=== PATIENT | female | born 1955 | race Caucasian/White ===

== ENCOUNTER 2018-11-11 06:10 | Outpatient (CLI) | payer MEDICAID, SELFPAY ==
[2018-11-11 09:05] LABS: ALT 40 U/L (12-78); AST 17 U/L (15-37); Cholesterol 215 mg/dL (50-200); HDL Cholesterol 83 mg/dL (40-60); LDL CHOLESTEROL 115 mg/dL (<100); Triglyceride 91 mg/dL (30-150)
[2018-11-11 09:20] LABS: Creatine Kinase 89 U/L (26-192)
== END 2018-11-11 06:30 ==
PROVIDERS: PCP Physician Assistant Medical; Visit Provider Nurse Practitioner Family
DX: E78.5 Hyperlipidemia, unspecified (principal)
CPT/HCPCS: 36415; 80061; 82550; 83721; 84450; 84460

== ENCOUNTER 2018-11-16 19:17 | Outpatient (REF) | payer MEDICAID, SELFPAY ==
--- NOTE | 2018-11-16 15:15 | PAPFT_PTH ---
PATIENT: Coco Forde LOC: [facility] U#:[id number] AGE/SX: 63/F ROOM: RE11/16/[address]: Marianna Waters : 1955 BED: DIS: 11/16/2018 SPEC #: [id number] RECD: 11/17/18 12:55 STATUS: CORDELL RELisa #: [id number] ANASTASIA: 11/16/18 15:[address]: Marianna Waters DEPT: [facility] Cytology RECD BY: Sonali Singh ENTERED: 11/17/18 12:55 SP TYPE: PAPFT OTHR DR: Hilda Dhaliwal Tissues: 1 - CX/ENDOCX FOR PAP SMEARS Procedures: PAP THIN PREP/UVM Screening HPV DNA PROBE Comments: [id number]
== END 2018-11-16 19:37 ==
LOC: NCHCN 19:17
PROVIDERS: PCP Physician Assistant Medical; Visit Provider Nurse Practitioner Family
DX: Z12.4 Encounter for screening for malignant neoplasm of cervix (principal); Z11.51 Encounter for screening for human papillomavirus (HPV); Z01.419 Encounter for gynecological examination (general) (routine) without abnormal findings
CPT/HCPCS: 88142; 87624

== ENCOUNTER 2019-04-15 09:39 | Inpatient (IN) | payer MEDICAID, SELFPAY ==
[2019-04-15 09:39] VITALS: BP 168/68; PULSE 88; RESP 18; TEMP 36.8; O2SAT 97
--- NOTE | 2019-04-15 10:00 | DI.RAD_ITS ---
SYMPTOM/DIAGNOSIS: FALL LEFT HIP AND PELVIS:: Three views. There are post surgical changes of a left total hip replacement. The orthopaedic hardware appears in good position. There are two lag screws seen in the left hemipelvis which appears stable. There has been no change in appearance of the orthopaedic hardware compared to 2009. Heterotopic bone formation is seen about the left hip prosthesis. No acute fracture or dislocation is seen. The soft tissues are unremarkable. IMPRESSION: No acute fracture or dislocation of the left hip.
--- NOTE | 2019-04-15 10:00 | DI.RAD_ITS ---
SYMPTOM/DIAGNOSIS: FALL LEFT TIB/FIB: No acute fracture or dislocation is identified. The comminuted patellar fracture is discussed on the x-ray of the knee.
--- NOTE | 2019-04-15 10:00 | DI.RAD_ITS ---
SYMPTOM/DIAGNOSIS: FALL LEFT KNEE: Three views. There is a comminuted distracted fracture of the patella. There is hemarthrosis present. There is marked swelling in the prepatellar soft tissues. The distal femur and proximal tibia and fibula appear intact. IMPRESSION: Comminuted severely distracted fracture of the patella.
--- NOTE | 2019-04-15 10:00 | ED.GENADUL_ITS ---
Discharge Plan Discharge Details Chief Complaint: Orthopedic Primary Care Provider: Hilda Dhaliwal ED Provider: Artur Moreno Home Meds and New Rx's Prescriptions: No Action simvastatin 10 MG tablet 10 mg PO DAILY Qty: 1 RF: 0 Therems 1 EACH tablet 1 ea PO DAILY Qty: 1 RF: 0 Buspirone HCl 5 MG tablet 5 mg PO BID RF: 0 ibuprofen 800 MG tablet 800 mg PO TID RF: 0 donepezil 10 MG tablet 10 mg PO DAILY RF: 0 lisinopril 10 MG tablet 20 mg PO DAILY RF: 0 fluoxetine [Prozac] 10 MG capsule 10 mg PO DAILY RF: 0 hydrochlorothiazide 25 MG tablet 12.5 mg PO DAILY RF: 0 acetylcysteine 600 mg Capsule See Rx Instructions .ROUTE .COMPLEX RF: 0 Medical Decision Making 63-year-old female past medical history of dementia presents with a mechanical fall left knee trauma concern for fracture versus traumatic effusion versus less likely dislocation plan for basic labs x-rays ED observation. ECG: Regular sinus rhythm rate 67 normal axis no ectopy normal intervals no STEMI X-rays significant for comminuted patellar fracture normal distal neurovascular exam discussed with orthopedics for admission and surgery tomorrow. HPI 63-year-old female history of dementia hypertension depression hyperlipidemia DNR/DNI. Presents with caregiver after a fall off bed reports that she got tangled up in the bed spread denies loss of consciousness caregiver found patient alert and oriented on the floor complaining of left knee pain. Patient denies head trauma complaining solely of left knee pain around her patella. Patient states pain is sharp nonradiating localized right over her anterior knee is worse with movement palpation better with ice.no shortness of breath chest pain nausea vomiting diarrhea loss of consciousness fever chills or other recent trauma. General Date/Time Provider Initiated Documentation: 04/15/19 09:50 . Related Data Home Medications Medication Instructions Recorded Confirmed donepezil 10 mg PO DAILY 12/01/12 04/15/19 fluoxetine [Prozac] 10 mg PO DAILY 12/01/12 04/15/19 hydrochlorothiazide 12.5 mg PO DAILY 12/01/12 04/15/19 ibuprofen 800 mg PO TID 12/01/12 04/15/19 lisinopril 20 mg PO DAILY 12/01/12 04/15/19 Therems 1 ea PO DAILY #1 05/02/13 04/15/19 simvastatin 10 mg PO DAILY #1 tab-cap 05/02/13 04/15/19 Buspirone HCl 5 mg PO BID tab-cap 05/25/17 04/15/19 acetylcysteine See Rx Instructions .ROUTE .COMPLEX 04/15/19 04/15/19 Allergies Allergy/AdvReac Type Severity Reaction Status Date / Time No Known Allergies Allergy Unverified 06/07/17 09:24 General Stated Complaint: Orthopedic ISMAEL: 3 Review of Systems Review of Systems All systems reviewed & are unremarkable except as noted in HPI and below PFSH Medical History Benign hypertension Depression Hyperlipidemia Organic brain syndrome PTSD Symptoms of Dementia Tinnitus Surgical History Colonoscopy - MAC (06/07/17) Total replacement of hip Social History Smoking/Tobacco Use Status: Former Tobacco Use Alcohol Intake: never Drug use: Never Do you feel safe at home: Yes Do you feel safe in your relationship?: Yes Exam Narrative Exam Narrative: Pulse oximetry reviewed by me and is normal: Constitutional: in no acute distress. well appearing. oriented to person, place, and time. Eyes: conjunctivae are normal. Pupils are equal, round, and reactive to light. No scleral icterus. extraocular muscles are intact Ears/Nose/Mouth/Throat: muscousal membranes are moist. Musculoskeletal: neck is supple. normal range of motion in all extremities except for left knee is held in extension with moderate swelling over the anterior knee with positive effusion no other deformity no crepitus normal distal neurovascular exam normal popliteal pulses per. Cardiovascular: Normal rate and rhythm. No lower extremity edema Respiratory: effort is normal. no stridor or respiratory distress. Lungs clear to auscultation GastrointestinaI: abdomen soft, +BS, nontender, -rebound, -guarding. Neurological: alert and oriented to person, place, and time. normal strength, no tremor. Skin: Skin is warm and dry. not diaphoretic. Distal perfusion intact, warm extremities, cap refill < 2 seconds. Hem/Lymph/Imm: No cervical LAD, no goiter, no conjunctival pallor Psych: normal mood and affect. behavior is normal Triage and nurse notes reviewed. Course Vital Signs Temperature 36.8 C 04/15/19 09:39 Pulse 88 04/15/19 09:39 Respiratory Rate 18 04/15/19 09:39 Blood Pressure 168/68 H 04/15/19 09:39 Pulse Oximetry 97 04/15/19 09:39 Temperature 36.8 C 04/15/19 09:39 Temperature Source Temporal Artery Scan 04/15/19 09:39 Pulse 88 04/15/19 09:39 Respiratory Rate 18 04/15/19 09:39 Respiratory Effort Non-Labored 04/15/19 09:51 Blood Pressure 168/68 H 04/15/19 09:39 Blood Pressure Position Supine 04/15/19 09:39 Pulse Oximetry 97 04/15/19 09:39 Oxygen Delivery Method Room Air 04/15/19 09:39 Oxygen Flow Rate 0 04/15/19 09:39
--- NOTE | 2019-04-15 10:47 | NUR.NOTE ---
pt back from [facility] Nursing Note:
[2019-04-15 11:12] LABS: Abs Immature Grans 0.03 k/cumm (0.0-0.09); Absolute Basophil Count 0.07 k/cumm (0.0-0.2); Absolute Lymphocyte Count 1.96 k/cumm (1.2-3.4); Absolute Monocyte Count 0.55 k/cumm (0.11-0.7); Absolute Neutrophil Count 5.03 k/cumm (1.2-6.7); Basophils % 0.9; Eosinophils % 1.3; HCT 42.6 % (36.0-46.0); Immature Grans % 0.4; Lymphocytes % 25.3; Mean Corp. HGB Concentration 32.9 g/dL (32.0-36.0); Mean Corpuscular Hemoglobin 28.6 pg (27.0-33.0); Mean Corpuscular Volume 87.1 fL (80-95); Mean Platelet Volume 12.5 fL (8.0-11.0); Monocytes % 7.1; Platelet Count 261 x1000/uL (130-400); RBC 4.89 m/cumm (4.00-5.20); RBC Distribution Width 13.1 % (11.7-14.6); White Blood Cell Count 7.74 k/cumm (4.4-10.8)
[2019-04-15 11:22] LABS: Anion Gap 9.7 mmol/L (3-11); BUN 20 mg/dL (7-18); CO2 28.3 mmol/L (21.0-32.0); CREATININE 0.66 mg/dL (0.55-1.02); Calcium 9.2 mg/dL (8.5-10.1); Chloride 110 mmol/L (98-107); Glucose 111 mg/dL (70-100); Potassium 3.7 mmol/L (3.5-5.1); Sodium 148 mmol/L (136-145)
--- NOTE | 2019-04-15 12:07 | DI.VRAD_ITS ---
EXAM: XR Left Hip with Pelvis when Performed EXAM DATE/TIME: 04/15/2019 10:14 AM CLINICAL HISTORY: 63 years old, female; Hip pain; Left hip TECHNIQUE: Imaging protocol: XR Left hip with pelvis when performed. Views: 2 or 3 views. COMPARISON: No relevant prior studies available. FINDINGS: Bones/joints: Postsurgical changes of the left pelvis and left hip. There is a total left hip arthroplasty with heterotopic bone. There is degenerative changes of the lower lumbar spine. Soft tissues: Normal. Gastrointestinal tract: There are air-filled loops of small and large bowel. There is a moderate stool overload. IMPRESSION: Total left hip arthroplasty. No evidence for acute bony injury. Dictated and Authenticated by: Sherry Finn MD. Ordering:MARY Siddiqui MD
--- NOTE | 2019-04-15 12:08 | DI.VRAD_ITS ---
EXAM: XR Left Knee EXAM DATE/TIME: 04/15/2019 10:03 AM CLINICAL HISTORY: 63 years old, female; Pain; Knee; Left TECHNIQUE: Imaging protocol: XR Left knee. Views: 3 views. COMPARISON: No relevant prior studies available. FINDINGS: Bones/joints: The patella is fragmented. There is a joint effusion with prepatellar swelling. The femur, tibia, and fibula visualized are intact. Soft tissues: Marked prepatellar soft tissue swelling. IMPRESSION: Comminuted patella fracture with joint effusion and prepatellar hematoma. Dictated and Authenticated by: Sherry Finn MD. Ordering:MARY Siddiqui MD
--- NOTE | 2019-04-15 12:09 | DI.VRAD_ITS ---
EXAM: XR Left Tibia and Fibula EXAM DATE/TIME: 04/15/2019 10:03 AM CLINICAL HISTORY: 63 years old, female; Injury or trauma; Fall; Initial encounter; Swelling (edema); Knee; Left TECHNIQUE: Imaging protocol: XR Left tibia and fibula. Views: 2 views. COMPARISON: CR XR knee LT 3V AP,lat,olga 15/04/2019 10:22 FINDINGS: Bones/joints: Unremarkable. Soft tissues: Unremarkable. IMPRESSION: No acute findings. Dictated and Authenticated by: Sherry Finn MD. Ordering:MARY Siddiqui MD
--- NOTE | 2019-04-15 12:11 | NUR.NOTE ---
pt asissted onto bedpan Nursing Note:
--- NOTE | 2019-04-15 12:22 | NUR.NOTE ---
ana at bedside for eval Nursing Note:
--- NOTE | 2019-04-15 13:23 | OCONE_ITS ---
Date of service: 04/15/19 Time of Service: 13:23 History of Present Illness Chief Complaint: Left Knee Pain Narrative: Coco is a 63-year-old who lives with a caregiver and also has a guardian. She is otherwise fairly independent with mobility. She states that she was trying out of the bed and is unsure exactly what happened but she fell. She thought she fell on her butt but she could have hit her knee. She had immediate pain in the left knee. She is unable to stand or weight-bear. She noted swelling about the left knee. She has a history of a left hip replacement and pelvic osteotomy on the left side. She denies any preinjury left knee pain. She denies any pain in the right leg or bilateral upper extremities. She denies any numbness or tingling. She has no significant medical issues and currently has no chest pain, shortness of breath, loss of consciousness. Consults Consult date: 04/15/19 Requesting physician: Artur Moreno Consult Reason Left patella fracture Assessment and Plan (1) Fracture of left patella: Start date: 04/15/19 Current visit: Yes Status: Acute Coco is a 63-year-old who has a comminuted and displaced left patella fracture. She is unable to weight-bear. This is a surgical fracture since the extensor mechanism is completely disrupted. I discussed this case with Coco and her guardian and caregiver. I reviewed the possible treatment options and they both agree to proceed in whatever way we will reestablish Coco's ability to ambulate. While she has some mental disabilities, she is otherwise independent physically speaking. I reviewed the surgery with Coco and her pr oviders. I discussed the risk of the procedure to include bleeding, infection, pain, hardware prominence, hardware failure, malunion, nonunion, damage to nerves and vessels, damage to muscle tendons, weakness, blood clot, cardiopulmonary demise. Despite these risk, barely agrees to proceed and so does her caregiver and guardian. The guardian signed her consent. I also do not think Coco is safe to go home. To help manage her pain we will use ketorolac. She is unable to bear weight nor mobilize on the left leg and is not safe to discharge to home. Furthermore, her sodium came back slightly elevated which we will continue to follow here in the hospital. I will plan for surgical stabilization of the left patella fracture tomorrow morning. N.p.o. after midnight. Cefazolin for preoperative antibiotics. Qualifiers: Encounter type: initial encounter Fracture type: closed Fracture morphology: comminuted Fracture alignment: displaced Qualified Code(s): S82.042A - Displaced comminuted fracture of left patella, initial encounter for closed fracture (2) Hypernatremia: Current visit: Yes Status: Acute Follow conservatively at this time. Recheck BMP in the morning. Review of Systems Review of Systems All systems reviewed & are unremarkable except as noted in HPI and below PFSH Medical History Benign hypertension Depression Hyperlipidemia Organic brain syndrome PTSD Symptoms of Dementia Tinnitus Surgical History Colonoscopy - MAC (06/07/17) Total replacement of hip Social History Smoking/Tobacco Use Status: Former Tobacco Use Alcohol Intake: never Drug use: Never Do you feel safe at home: Yes Do you feel safe in your relationship?: Yes Exam Narrative Exam Narrative: Cooc is lying comfortably in the supine position in the stretcher. Her head is normal cephalic and atraumatic. She is edentulous. She is conversant and is able to answer questions appropriately. She is alert but not quite oriented to place or time/location. She is breathing comfortably without notable wheezing or distress. Evaluation bilateral upper extremity show full passive and active range of motion. No pain with passive motion or palpation. Sensation intact from C5-T1. Strength is intact from C5-T1. Evaluation of the right lower extremity shows no notable deformity. No overlying skin changes. No ecchymosis. No pain with passive motion of the hip, knee, ankle, or foot. She endorses full sensation from L3-S1. Palpable DP and PT pulse. Evaluation of the left knee shows swelling about the left knee. There is a la rge surgical surgical incision seen along the lateral aspect the left thigh extending up onto the hip. There is no significant swelling otherwise. Mild ecchymosis seen anteriorly about the left knee. No erythema nor signs of infection. There are multiple small areas of scarring seen throughout the leg especially over the knee which the patient reports to have a history of boils. No signs of infection. Exquisite pain to palpation over the left knee. No pain over the proximal left thigh onto the left hip. No pain distally at the ankle of the foot. Sensation is intact from L3-S1. She has active ankle dorsiflexion, plantar flexion, great toe extension and flexion. Palpable DP and PT pulse. Results Last Vital Signs Temp 36.8 C 04/15/19 09:39 Pulse 88 04/15/19 09:39 Resp 18 04/15/19 09:39 BP 168/68 H 04/15/19 09:39 Pulse Ox 97 04/15/19 09:39 Labs : 04/15/19 10:53 04/15/19 10:53 Laboratory Results - last 24 hr 04/15/19 04/15/19 10:53 10:53 WBC 7.74 RBC 4.89 Hgb 14.0 Hct 42.6 MCV 87.1 MCH 28.6 MCHC 32.9 RDW 13.1 Plt Count 261 MPV 12.5 H Immature Gran % 0.4 Neutrophils % 65.0 Lymphocytes % 25.3 Monocytes % 7.1 Eosinophils % 1.3 Basophils % 0.9 Absolute Neutrophils 5.03 Absolute Lymphocytes 1.96 Absolute Monocytes 0.55 Absolute Eosinophils 0.10 Absolute Basophils 0.07 Sodium 148 H Potassium 3.7 Chloride 110 H Carbon Dioxide 28.3 Anion Gap 9.7 BUN 20 H Creatinine 0.66 Estimated GFR/1.73 m2 >= 60.00 Glucose 111 H Calcium 9.2 Imaging Imaging Studies: X-ray of the left knee demonstrates a comminuted fracture of the left patella with a primary transverse fracture pattern and to largely displaced components. X-ray of the left tib-fib and the left hip show no signs of acute injury. The left hip does have hip replacement and 2 screws within the ileum. I see no signs of new fracture or displacement of the total hip components.
[2019-04-15] MEDS: Acetaminophen 500 MG TAB PO ×2 (14:59→20:07)
[2019-04-15 15:01] VITALS: BP 180/80; PULSE 70; RESP 19; TEMP 37.1; O2SAT 97
--- NOTE | 2019-04-15 15:03 | ED.GENADUL_ITS ---
Discharge Plan Discharge Details Chief Complaint: Orthopedic Admit Date/Time: 04/15/19 13:11 Admit Provider: Ashish Vogel Attending Provider: Ashish Vogel Primary Care Provider: Hilda Dhaliwal ED Provider: Artur Moreno Medical Decision Making 63-year-old female status post mechanical fall with comminuted patella fracture. no head trauma no anticoagulation will defer CT head imaging. Patient discussed with Dr. Vogel from orthopedic surgery who will admit the patient for surgery tomorrow. Lab Data Lab results reviewed: Yes I reviewed the patient's lab results. HPI 63-year-old female past medical history of hypertension depression hyperlipidemia and dementia presents status post fall.patient was seated on the edge of her bed and got caught up in her bedspread and fell to the ground found by caregiver alert and patient denies loss of consciousness. Immediate knee pain to left knee unable to flex her knee or stand. Patient denies any trauma, denies head injury headache shortness of breath chest pain nausea vomiting or diarrhea. Patient here with caregiver and ambulates without difficulty at baseline. General Date/Time Provider Initiated Documentation: 04/15/19 09:50 . Related Data Home Medications Medication Instructions Recorded Confirmed donepezil 10 mg PO DAILY 12/01/12 04/15/19 fluoxetine [Prozac] 10 mg PO DAILY 12/01/12 04/15/19 hydrochlorothiazide 12.5 mg PO DAILY 12/01/12 04/15/19 ibuprofen 800 mg PO TID 12/01/12 04/15/19 lisinopril 20 mg PO DAILY 12/01/12 04/15/19 Therems 1 ea PO DAILY #1 05/02/13 04/15/19 simvastatin 10 mg PO DAILY #1 tab-cap 05/02/13 04/15/19 Buspirone HCl 5 mg PO BID tab-cap 05/25/17 04/15/19 acetylcysteine See Rx Instructions .ROUTE .COMPLEX 04/15/19 04/15/19 Allergies Allergy/AdvReac Type Severity Reaction Status Date / Time No Known Allergies Allergy Unverified 06/07/17 09:24 General Stated Complaint: Orthopedic ISMAEL: 3 Review of Systems Review of Systems All systems reviewed & are unremarkable except as noted in HPI and below PFSH Medical History Benign hypertension Depression Hyperlipidemia Organic brain syndrome PTSD Symptoms of Dementia Tinnitus Surgical History Colonoscopy - MAC (06/07/17) Total replacement of hip Social History Smoking/Tobacco Use Status: Former Tobacco Use Alcohol Intake: never Drug use: Never Do you feel safe at home: Yes Do you feel safe in your relationship?: Yes Exam Narrative Exam Narrative: Pulse oximetry reviewed by me and is normal: Constitutional: in no acute distress. well appearing. oriented to person, place, and time. Eyes: conjunctivae are normal. Pupils are equal, round, and reactive to light. No scleral icterus. extraocular muscles are intact Ears/Nose/Mouth/Throat: muscousal membranes are moist. Musculoskeletal: neck is supple. normal range of motion in all extremities except for left lower extremity which is locked in extension large effusion tenderness and deformity over left patella normal popliteal and distal pulses and normal sensation and foot strength. Cardiovascular: Normal rate and rhythm. No lower extremity edema Respiratory: effort is normal. no stridor or respiratory distress. GastrointestinaI: abdomen soft, +BS, nontender, -rebound, -guarding. Neurological: alert and oriented to person, place, and time. normal strength, no tremor. Skin: Skin is warm and dry. not diaphoretic. Distal perfusion intact, warm extremities, cap refill < 2 seconds. Hem/Lymph/Imm: No cervical LAD, no goiter, no conjunctival pallor Psych: normal mood and affect. behavior is normal Triage and nurse notes reviewed. Course Vital Signs Temperature 36.8 C 04/15/19 09:39 Pulse 88 04/15/19 09:39 Respiratory Rate 18 04/15/19 09:39 Blood Pressure 168/68 H 04/15/19 09:39 Pulse Oximetry 97 04/15/19 09:39 Temperature 36.8 C 04/15/19 09:39 Temperature Source Temporal Artery Scan 04/15/19 09:39 Pulse 88 04/15/19 09:39 Respiratory Rate 18 04/15/19 09:39 Respiratory Effort Non-Labored 04/15/19 09:51 Blood Pressure 168/68 H 04/15/19 09:39 Blood Pressure Position Supine 04/15/19 09:39 Pulse Oximetry 97 04/15/19 09:39 Oxygen Delivery Method Room Air 04/15/19 09:39 Oxygen Flow Rate 0 04/15/19 09:39 Lab/Test Results Lab/Test Results: Laboratory Tests Range/Units 04/15/19 04/15/19 10:53 10:53 WBC (4.4-10.8) k/cumm 7.74 RBC (4.00-5.20) m/cumm 4.89 Hgb (12.0-15.5) g/dL 14.0 Hct (36.0-46.0) % 42.6 MCV (80-95) fL 87.1 MCH (27.0-33.0) pg 28.6 MCHC (32.0-36.0) g/dL 32.9 RDW (11.7-14.6) % 13.1 Plt Count (130-400) x1000/uL 261 MPV (8.0-11.0) fL 12.5 H Immature Gran % 0.4 Neutrophils % 65.0 Lymphocytes % 25.3 Monocytes % 7.1 Eosinophils % 1.3 Basophils % 0.9 Absolute Neutrophils (1.2-6.7) k/cumm 5.03 Absolute Lymphocytes (1.2-3.4) k/cumm 1.96 Absolute Monocytes (0.11-0.7) k/cumm 0.55 Absolute Eosinophils (0.0-0.7) k/cumm 0.10 Absolute Basophils (0.0-0.2) k/cumm 0.07 Sodium (136-145) mmol/L 148 H Potassium (3.5-5.1) mmol/L 3.7 Chloride (98-107) mmol/L 110 H Carbon Dioxide (21.0-32.0) mmol/L 28.3 Anion Gap (3-11) mmol/L 9.7 BUN (7-18) mg/dL 20 H Creatinine (0.55-1.02) mg/dL 0.66 Estimated GFR/1.73 m2 (mL/min/1.73m2) >= 60.00 Glucose (70-100) mg/dL 111 H Calcium (8.5-10.1) mg/dL 9.2
--- NOTE | 2019-04-15 15:10 | NUR.NOTE ---
knee brace applied Nursing Note:
[2019-04-15 19:09] VITALS: BP 173/76; PULSE 73; RESP 17; TEMP 36.6; O2SAT 96
[2019-04-15] MEDS: busPIRone 5 MG TAB PO (20:07)
[2019-04-15] MEDS: Ketorolac 15 MG/ML VIAL IVP (23:15)
[2019-04-15] MEDS: Normal Saline 1,000 ML 100 ML IV (23:23)
[2019-04-15 23:25] VITALS: BP 164/83; PULSE 66; RESP 18; TEMP 36.6; O2SAT 98
[2019-04-16] VITALS (15 sets, daily range): BP systolic 94–195; BP diastolic 41–97; PULSE 60–98; RESP 12–20; TEMP 36.5–37.7; O2SAT 94–97
--- NOTE | 2019-04-16 07:35 | PGE_ITS ---
Date of Service Date of service: 04/16/19 Time of Service: 10:35 Assessment and Plan (1) Fracture of left patella: Current visit: Yes Status: Acute Coco has a comminuted left patella fracture. She is n.p.o. The plan is for operative fixation today. This will be challenging fracture fixation. She will likely be a knee immobilizer following the procedure, weightbearing as tolerated extension with assistive device. She also, given her mental disabilities and generalized deconditioning, will require custodial facility upon discharge. Physical therapy will start postop day #1 for full evaluation. Enoxaparin for DVT prophylaxis while here in the hospital transitioning to aspirin on discharge. Qualifiers: Encounter type: initial encounter Fracture type: closed Fracture morphology: comminuted Fracture alignment: displaced Qualified Code(s): S82.042A - Displaced comminuted fracture of left patella, initial encounter for closed fracture (2) Hypernatremia: Current visit: Yes Status: Resolved Resolved. Will not check any further labs. Subjective Interval history since last seen: Coco did well last night. She did have some pain but this was able to be managed. She was somewhat restless. She is able to use the bedpan. Her pain is primarily in the left knee. No other pain complaints. No chest pain or shortness of breath. No nausea or vomiting. Exam Narrative Exam Narrative: Left knee brace in place. Notable ecchymosis and swelling of the left knee. Pain to palpation anteriorly. Unable to straight leg raise. [employer] DP and PT pulse. Objective Objective Clinical Data: Abnormal lab results 04/15/19 04/15/19 04/16/19 Range/Units 10:53 10:53 07:12 MPV 12.5 H (8.0-11.0) fL Sodium 148 H (136-145) mmol/L Chloride 110 H 109 H (98-107) mmol/L BUN 20 H 20 H (7-18) mg/dL Glucose 111 H (70-100) mg/dL Calcium 8.1 L (8.5-10.1) mg/dL Vital Signs Temperature 36.8 C 04/16/19 03:41 Temperature Source Tympanic 04/16/19 03:41 Pulse 74 04/16/19 03:41 Pulse Rhythm Regular 04/15/19 19:45 Respiratory Rate 16 04/16/19 03:41 Respiratory Effort Non-Labored 04/15/19 19:45 Respiratory Depth Normal 04/15/19 19:45 Respiratory Pattern Normal 04/15/19 19:45 Blood Pressure 172/90 H 04/16/19 03:41 Blood Pressure Position Supine 04/15/19 09:39 Pulse Oximetry 96 04/16/19 03:41 Oxygen Delivery Method Room Air 04/16/19 03:41 Oxygen Flow Rate 0 04/16/19 03:41 Pain Level 0 04/16/19 03:41 Intake & Output 04/15/19 04/15/19 04/16/19 11:59 23:59 11:59 Intake Total 480 / 480 810 / 810 Output Total 650 / 650 500 / 500 Balance -170 / -170 310 / 310 Weight 72.575 kg 72.9 kg Intake: IV 810 / 810 Oral 480 / 480 Output: Urine 650 / 650 450 / 450 Estimated Blood Loss 50 / 50 Other: Urine Color Yellow Yellow Urine Appearance Clear Clear Urine Odor None Strong Voiding Methods Bedpan Bedpan Laboratory Results WBC 7.74 k/cumm (4.4-10.8) 04/15/19 10:53 RBC 4.89 m/cumm (4.00-5.20) 04/15/19 10:53 Hgb 14.0 g/dL (12.0-15.5) 04/15/19 10:53 Hct 42.6 % (36.0-46.0) 04/15/19 10:53 MCV 87.1 fL (80-95) 04/15/19 10:53 MCH 28.6 pg (27.0-33.0) 04/15/19 10:53 MCHC 32.9 g/dL (32.0-36.0) 04/15/19 10:53 RDW 13.1 % (11.7-14.6) 04/15/19 10:53 Plt Count 261 x1000/uL (130-400) 04/15/19 10:53 MPV 12.5 fL (8.0-11.0) H 04/15/19 10:53 Immature Gran % 0.4 04/15/19 10:53 65.0 04/15/19 10:53 25.3 04/15/19 10:53 7.1 04/15/19 10:53 1.3 04/15/19 10:53 0.9 04/15/19 10:53 Absolute Neutrophils 5.03 k/cumm (1.2-6.7) 04/15/19 10:53 Absolute Lymphocytes 1.96 k/cumm (1.2-3.4) 04/15/19 10:53 Absolute Monocytes 0.55 k/cumm (0.11-0.7) 04/15/19 10:53 Absolute Eosinophils 0.10 k/cumm (0.0-0.7) 04/15/19 10:53 Absolute Basophils 0.07 k/cumm (0.0-0.2) 04/15/19 10:53 Sodium Cancelled 04/16/19 07:30 Potassium Cancelled 04/16/19 07:30 Chloride Cancelled 04/16/19 07:30 Carbon Dioxide Cancelled 04/16/19 07:30 Cancelled 04/16/19 07:30 BUN Cancelled 04/16/19 07:30 Cancelled 04/16/19 07:30 Cancelled 04/16/19 07:30 Glucose Cancelled 04/16/19 07:30 Calcium Cancelled 04/16/19 07:30
[2019-04-16] MEDS: Lactated Ringers 1,000 ML 30 ML IV ×2 (07:46→11:48)
[2019-04-16] MEDS: Bupivacaine 0.5% Pres-Free 30 ML VIAL (08:01)
[2019-04-16] MEDS: Bupivacaine LIPOSOME/PF 133 MG/10 ML VIAL IJ ×2 (08:01→10:08)
[2019-04-16] MEDS: ceFAZolin 2,000 MG in Normal Saline 100 ML 200 MG IVPB (08:05)
[2019-04-16 08:11] LABS: Anion Gap 8.4 mmol/L (3-11); BUN 20 mg/dL (7-18); CO2 26.6 mmol/L (21.0-32.0); CREATININE 0.58 mg/dL (0.55-1.02); Calcium 8.1 mg/dL (8.5-10.1); Chloride 109 mmol/L (98-107); Glucose 100 mg/dL (70-100); Potassium 3.7 mmol/L (3.5-5.1); Sodium 144 mmol/L (136-145)
[2019-04-16] MEDS: Bupivacaine 0.25% Pres-Free 30 ML VIAL (10:08)
[2019-04-16] MEDS: Normal Saline 50 ML 36.5 ML (10:08)
[2019-04-16] MEDS: Ketorolac 30 MG/ML VIAL (10:08)
--- NOTE | 2019-04-16 10:12 | DI.RAD_ITS ---
SYMPTOM/DIAGNOSIS FRACTURE LEFT PATELLA LEFT KNEE: 04/16/19 9:31 A.M. Fluoroscopy Time: 24.95 Fluoroscopic images were obtained. The patient is now status post reduction and internal fixation of the comminuted patellar fracture. The fracture components appear near anatomic in alignment.
[2019-04-16] MEDS: Simvastatin 10 MG TAB PO (12:03)
[2019-04-16] MEDS: busPIRone 5 MG TAB PO ×2 (12:03→20:13)
[2019-04-16] MEDS: FLUoxetine 10 MG TAB PO (12:03)
[2019-04-16] MEDS: Donepezil 5 MG TAB 10 MG PO (12:03)
[2019-04-16 12:21] LABS: ALT 36 U/L (12-78); AST 10 U/L (15-37); Albumin 3.4 g/dL (3.4-5.0); Alkaline Phosphatase 74 U/L (46-116); Bilirubin, Direct 0.07 mg/dL (0.00-0.20); Bilirubin, Total 0.4 mg/dL (0.2-1.0); Total Protein 6.3 g/dL (6.4-8.2)
[2019-04-16] MEDS: Acetaminophen 500 MG TAB PO ×2 (13:49→20:13)
--- NOTE | 2019-04-16 14:21 | PHARADMIT ---
Admission Pharmacy Clinical Review Left patella fracture Code Status Full Code Current Weight Wgt-72.9 kg Renally Cleared and Narrow Therapeutic Index Meds CrCl~ 58.7 mL/min Meds-OK QTc Value / Action Taken QTc-443 na BP Control, Fever BP- 159/96 Tmax- 37.5C Electrolytes reviewed Na- 144 K+3.7 DVT Prophylaxis Lovenox Opiate Usage / Scheduled Bowel Regimen Ordered Yes Yes Plt/SCr for Heparin / Enoxaparin Plts-261 SCr-0.58 INR for Warfarin na H/H stable, WBC/Bands H&H- 14.0/42.6 WBC- 7.74 Antibiotic appropriateness Ancef Cultures and Sensitivities none Surgical ABX d/c within 24 hr Yes DM control / Insulin Dosing BG-100 Heart Failure (Check EF%) (DORCAS's, B-Block, Diuretics) HCTZ, Lisinopril IV to PO Switch No Home Meds Reviewed Yes Home Meds Not Ordered Ibuprofen, M-vites Comments
[2019-04-16] MEDS: Ketorolac 15 MG/ML VIAL IVP (17:02)
--- NOTE | 2019-04-16 18:44 | PDOC.CMIN ---
Care Management Initial Assess REASON FOR HOSPITALIZATION:: Left Patella Fracture PAST MEDICAL HISTORY/PAST SURGICAL HISTORY:: Medical: Benign hypertension, Depression, Hyperlipidemia, Organic brain syndrome, PTSD, Symptoms of Dementia, Tinnitus. Surgical: Colonoscopy - MAC (06/07/17), Total replacement of hip PREVIOUS FUNCTIONAL STATUS/SOCIAL/FAMILY SUPPORTS:: Lives in a home in [place] with a 24/7 caregiver. Sister, Shivani Burris, lives in [place]. Zamzam Cavazos [facility], is her main corrections caseworker and Radha Velasquez is her Guardian. CURRENT FUNCTIONAL STATUS:: Sitting up in bed using her spirometer during each TV commercial. Talkative and happy. Swathi and Radha visited earlier today. ADVANCE DIRECTIVES:: None on file Has patient been provided with information about the portal?: No Did the patient sign up for the portal?: No CODE STATUS:: Full Code INSURANCE COVERAGE / FINANCIAL ISSUES:: Medicaid CURRENT HOME/COMMUNITY SERVICES/EQUIPMENT:: [facility]. Has a 24/7 caregiver PRIMARY CARE PHYSICIAN:: LYNNE De Leon POTENTIAL DISCHARGE NEEDS:: Dr. Vogel suggested short term SNF placement prior to returning home. PATIENT/FAMILY EDUCATION NEEDS:: Safety and use of walker if needed ANTICIPATED BARRIERS TO DISCHARGE:: None identified TRANSPORTATION:: Friends/Caregiver will transport PLAN:: Coco will either return home with new services or a referral will be made for short term SNF placement.
[2019-04-17] VITALS (7 sets, daily range): BP systolic 133–178; BP diastolic 63–107; PULSE 67–89; RESP 18; TEMP 36–37.1; O2SAT 95–98
[2019-04-17] MEDS: Lactated Ringers 1,000 ML 80 ML IV (02:10)
[2019-04-17] MEDS: Ketorolac 15 MG/ML VIAL IVP ×2 (06:17→13:07)
[2019-04-17] MEDS: Enoxaparin 40 MG/0.4 ML SYR SC (08:38)
[2019-04-17] MEDS: busPIRone 5 MG TAB PO ×2 (08:38→21:09)
[2019-04-17] MEDS: Acetaminophen 500 MG TAB PO ×3 (08:39→21:09)
[2019-04-17] MEDS: FLUoxetine 10 MG TAB PO (08:39)
[2019-04-17] MEDS: Simvastatin 10 MG TAB PO (08:39)
[2019-04-17] MEDS: Lisinopril 10 MG TAB 20 MG PO (08:40)
[2019-04-17] MEDS: hydroCHLOROthiazide 25 MG TAB 12.5 MG PO (08:40)
[2019-04-17] MEDS: Donepezil 5 MG TAB 10 MG PO (08:40)
--- NOTE | 2019-04-17 09:48 | IN_ITS ---
Date of service: 04/17/19 Time of Service: 08:15 PT Notes Inpatient Physical Therapy Evaluation Date: 04/17/19 Referring Doctor: Ashish Vogel MD PT Orders: PT CONSULT: Manage follow per spec for ORIF L patella fx Precautions: WBAT through Left, and standard Patient Profile/Admitting Diagnosis: Orders received for this 63 year old female with a history of cognitive delay. SHe apparently suffered a fall at home and struck her knee on the left side fracturing her patella. X-ray imaging confirmed the fracture and the need for ORIF was identified after consult with orthopedics. Patient had the surgery yesterday morning and orders were placed for a full PT evaluation to be completed on post op day 1. PMHX: Medical History Benign hypertension Depression Hyperlipidemia Organic brain syndrome PTSD Symptoms of Dementia Tinnitus Surgical History Colonoscopy - MAC (06/07/17) Total replacement of hip Social History/Home Situation: Patient lives at home in the care of her tenter caregiver Equipment Owned/DME: NOthing Subjective: Patient states that she is doing okay for the most part. Objective: Patient well oriented and alert and sitting up in bed with HOB to 45 degrees. SHe had left leg in immobilizer and IV through the right lower extremity Mental Status: Alert and oriented to person, place, and time. Pain: 2/10 ROM: Right Upper Extremity: WFL Left Upper Extremity: WFL Right Lower Extremity: WFL Left Lower Extremity: hip with adequate rotation and flexion to 90 degrees, knee ROM not assessed per precations, ankle ROM WFL Strength: Right Upper Extremity: globally 5/5 Left Upper Extremity: globally 5/5 Right Lower Extremity: globally 5/5 Left Lower Extremity: Hip and knee musculature not assessed appropriately due to restrictions, ankle strength 5/5 Bed Mobility/Transfers: CGA for bed mobility including negotiation of Linen Supine-sit: CGA from HOB 45 degrees Sit-stand: CGA with 2WW Stand-sit: CGA with 2WW Gait: Patient able to ambulate up to 20 feet and turn around with continuous stepping back into her room with 2WW, WBAT and CGA. Minimal cues needed Balance: Static Sitting: Good Dynamic Sitting: Good Static Standing: Fair Dynamic Standing: Poor Special Tests: Mobility Limitations Standardized Measure [facility] AM-PAC 6 clicks Basic Mobility Inpatient Short Form: Raw Score: 17 Standardized Score: 42.13 CMS Score: 50.57% Informed Consent/Education: Patient instructed in purpose of PT consult and plan of care. ASSESSMENT: Patient is a 63 year old female with hx of good physical health Admitted with left patellar fx with ORIF Patient presents with the following impairment level findings: limited ROM through the left, WBAT through Left, limited ambulation distance, and assistance with transfers. Pt will benefit from skilled therapy intervention in order to remedy their functional limitations and restore patient to a more appropriate and stable functional level. Impairments are contributing to the following functional limitations: AMPAC score 17 with CMS 50.57% Patient is assessed as a Moderate complexity initial evaluation 80724 based on the following: History: see above Examination: see above Presentation: evolving Decision Making: Moderate based on AMPAC of 50.57% Goals: Goals X1 week 1. Supine-Sit Supervision 2. Sit-Supine supervision 3. Sit-Stand supervision 4. Stand-Sit supervision 5. Bed-Chair supervision 6. Gait with 2WW and supervision up to 100 feet Plan of Care/Treatment Plan: 1-2x/day, 7 days/week x 1 week. Plan of care has been reviewed with the UNDERGROUND MINING SECTION FOREMAN providing the service under Physical Therapy direction. Initiate Physical Therapy intervention for strengthening, bed mobility, transfers, gait, stairs, balance training, use of assistive device. DISCHARGE RECOMMENDATIONS: MOst likely to SNF for continued rehabilitation after discharge TREATMENT CODE/TIME: MOderate complexity initial evaluation [id number] 25 minutes at [facility]
--- NOTE | 2019-04-17 10:20 | PDOC.CMPRO ---
Care Management Progress Note S/O: Coco was lying in bed when CM met with her. She was pleasant in interaction and exuberant in interaction. She spoke about her current living situation with Swathi and Denys Anguiano. She reported living in the home for the last four years and being quite happy at home. She shared that her Guardian, Radha came to visit with her yesterday, and the discharge plan to her understanding was to enter rehab for a short period of time prior to returning home. Coco stated anticipating being at [facility] for a few more days. CM met with Justine of [facility] and provided referral for review. CM continues to follow and support discharge planning considerations. A: 63 year old female admitted to [facility] 04/15/19 for Left Patella Fracture P: Coco will transition to [facility] (pending bed offer) when ready per MD for short term SNF placement. Coco has a building maintenance mechanic home caregiver as well as a Guardian (Radha Ron). CM continues to follow and support discharge planning considerations.
--- NOTE | 2019-04-17 10:32 | ROE_ITS ---
DATE OF SURGERY: April 16, 2019 PREOPERATIVE DIAGNOSIS: Comminuted left patellar fracture. POSTOPERATIVE DIAGNOSIS: Same. SURGERY: Open reduction and internal fixation of comminuted left patellar fracture. SURGEON: Ashish Vogel M.D. BROOM BUNDLER: Ruth Ann Richards PA-C ANESTHESIA: General with adductor nerve block. ESTIMATED BLOOD LOSS: 50 cc's TOURNIQUET TIME: 112 minutes FINDINGS: There was a comminuted patella in multiple fragments. The entire dorsum of the patella wa s a loose fragment piece. There was greater than five articular segments. The superior portion of t fantasma patella was pieced together to make on large block, which was then pieced to the more distal porti on of the patella, which was in a larger piece. A modified tension band construct was then created. COMPLICATIONS: None. DISPOSITION: The patient was awakened from anesthesia and taken to the PACU in a stable condition. INDICATION FOR PROCEDURE: Coco is a 63-year-old who fell getting out of bed. She lives with a ca regiver for some mental disabilities. She is otherwise independent with ambulation and mobility. Matt staley was seen in the Emergency Department with a completely displaced and comminuted left patellar fract ure. She was unable to mobilize. She was unable to straight leg raise. At this point I offered a s urgical fixation of the patella. I reviewed the risks of the procedure with Coco and her caregive r and guardian. I discussed these risks to include bleeding, infection, pain, stiffness, damage to n erves and vessels, damage to muscles and tendons, weakness, recurrence, malunion, nonunion, hardware prominence, hardware failure, blood clot, cardiopulmonary demise. Despite these risks, she elected t o proceed. PROCEDURE DESCRIPTION: Coco was greeted in the preoperative holding area. On the Medical/Surgica l floor her identify was confirmed and the site was marked. The consent was reviewed with the patien madeline and signed by her guardian in the Emergency Department the day prior. She was taken into the Opera ting Room. In the supine position a general anesthetic was given. [facility] An adductor nerve block was administered with ultrasound guidance by Tony Sanon. A n on-sterile tourniquet was placed high up onto the left thigh. The leg was positioned with a hip roll and onto a Bone Foam leg ramp. Prophylactic antibiotics in the form of Cefazolin were given. The l eft leg was prepped with ChloraPrep and draped in a standard fashion. A time-out was performed for s afe surgery. A standard midline incision was made overlying the knee. This was taken down from just above the tib ial tubercle to 2 to 3 cm above the superior pole of the patella. The skin was incised sharply down to the extensor mechanism. There was immediate hematoma encountered. This hematoma was evacuated. The fracture fragments were identified. There were multiple fragments. The dorsum of the patella wa s apparently absent. It was incorporated into a small piece superiorly and just some soft tissues me dially and inferiorly. Therefore, we were looking at cancellous bone primarily. There was no retina cular tear. A small lateral arthrotomy was performed to help mobilize the fracture fragments. Edson hawthorne inventory of the fracture pieces after debriding hematoma with a rongeur and curette demonstrated t hree primary superior pole pieces. The inferior segment had a larger piece to it with comminution m edially which bridged the primary transverse fracture plane. Starting with the superior segment I th en pieced together one of the smaller articular segments with the larger medial superior segment. Th is was held together with a 1.5 mm screw. The more lateral piece of the superior portion was then pl aced together and held with a K-Wire and a 2.0 mm screw was placed. Unfortunately, this did not seem to hold the fracture fragment. Therefore with this screw in place, I then placed a 3.5 mm cannulate d screw over the K-Wire, which was being used for support. This had excellent purchase and I was abl e to reapproximate the pieces together. It nearly anatomically reduced the articular segment superio rly. Now we had a block of bone and articular segment superiorly. The comminution medially, which w as attached with soft tissues, was left until after the superior piece was reduced to the inferior pi félix. I was able to reduce these pieces with the articular segment. However the difficulty was in ma tching up the dorsal segment. The pieces did not want to interdigitate like I thought they would. W ith some manipulation and joystick of the lower component I was able to draw the K-Wire across the me dial side of the patella longitudinally. This was an excellent position for the first cannulated scr ew. However, there was comminution superiorly and it was very possible that one of our screws had re duced the articular segment but it had distracted the dorsal segment so therefore there was a gap in the dorsal bone of the superior patella. I tried different positions but had to end up taking the K- Wire from the inferior pole slightly more lateral than I had planned on in order to capture any bone for the screw tension band construct. This did seem to catch some bone and therefore a 3.5 mm screw was placed in both these positions. Unfortunately, the screws were slightly more divergent than I wo uld like on the AP view. However they were in the bone. Once they were confirmed to be in good posi tion the screws were tightened, which helped compress the fracture site. If anything, it slightly ov er-reduced the fracture and there was a minor step-off of < 1 mm palpated on the articular surface. However, there was no significant gapping. The bony ends were in great contact. An 18 gauge stainle ss steel surgical wire was then inserted through the cannulated screws. A tension band construct was performed. Two wires were placed and they were each tensioned individually. This nicely reapproxi mated and tightened the dorsal tissues. The dorsal pieces which had bone were positioned underneath these wires and entrapped by the tension band construct. These were tightened until the wires were t ight, but not over-tightened. The excess wire was removed and the steel knots were then buried into the superior aspect of the patella and the quadriceps mechanism. The wound and the joint were once a gain irrigated. There still was a superomedial fragment which was in soft tissue. Given the size of this piece and the articular segment attached to it posteriorly, I did place two 2.0 mm screws secur ing this piece to the other articular segment. This nicely reduced this piece and secured it to the medial border of the patella. Using a PERMATAPE from [employer], braided polyester suture, I performed a cerclage of the patella. This suture tape was weaved in and out of the retinaculum and the periostea l tissues and tendon insertions to the patella. It was tightened, capturing all the loose fragments seen around the periphery. This was tied. The knee was tested to 90 degrees of flexion where there was no gapping of the fracture fragments. However, it was a tenuous repair. 5 cc's of demineralized bone matrix was then inserted into any of the bony defects. A finger was kept within the joint surf dorcas to make sure there was no penetration of the DBM into the joint. Once again the joint was irriga andreina thoroughly. The deep tissues of the knee were then injected with a mixture of 50 cc's of 0.25% B upivacaine, 10 cc's of Exparel, 30 mg of Ketorolac. The lateral retinacular arthrotomy to the latera l patella fragment was then closed with #1 Vicryl. The retinacular tissues overlying the knee were c losed separately with a #0 Vicryl. The deep dermal layer was closed with #2-0 Vicryl. The skin was closed with pedro. The wound was dressed with Xeroform, 4x4's, ABD, Kerlix and an DORCAS wrap. She w as placed in a knee immobilizer. At the end of the case all counts were correct. Prior to closing t he arthrotomy, the tourniquet was released at the 112 minutes and there was no significant bleeding. She was awakened from anesthesia and taken to the PACU in a stable condition.
[2019-04-17] MEDS: Docusate Sodium 100 MG CAP PO (12:02)
[2019-04-17] MEDS: HYDROcodone 5/Acetaminophen 325 TAB PO (12:02)
--- NOTE | 2019-04-17 12:14 | PT.INTREAT ---
Date of service: 04/17/19 Time of Service: 12:14 PT Notes Inpatient Physical Therapy Treatment Note [facility] Date: 04/17/2019 PRECAUTIONS: Fall, WBAT L SUBJECTIVE: Coco is agreeable to participating in PT. She states she has been up several times today to use the bathroom and to work with PT. OBJECTIVE: PAIN: Patient complained of left lateral knee pain with gait training BED MOBILITY/TRANSFERS Sit-stand: SBA Stand-sit: SBA GAIT Assistive Device:FWW Weight bearing: WBAT L Assist: CGA-SBA Distance: 50' x2 Deviation: Standing rest x2, C/o pain THEREX: Patient completed ankle pumps and glute set exercises, in a seated position, as per flow sheet. ASSESSMENT: Patient tolerated a progression in gait distance with FWW support and CGA?SBA. Patient would benefit from continued gait and transfer training as well as strengthening for improved mobility and improved activity tolerance. PLAN: Continue with PTs POC TREATMENT CODE/TIME: 25 minutes; 33133 x2
--- NOTE | 2019-04-17 17:14 | PGE_ITS ---
Date of Service Date of service: 04/17/19 Time of Service: 12:14 Assessment and Plan (1) Fracture of left patella: Current visit: Yes Status: Acute Coco is a 63-year-old who is status post ORIF of the left patella fracture. She is doing well. Pain is been controlled. We will continue to manage her pain with IV ketorolac and transition to oral. Given the limitations of her gait, weakness, and mental capacity to follow weightbearing restrictions, I do think she is a good candidate for detention facility. Continue discharge planning. Enoxaparin while in the hospital with aspirin on discharge. Qualifiers: Encounter type: initial encounter Fracture type: closed Fracture morphology: comminuted Fracture alignment: displaced Qualified Code(s): S82.042A - Displaced comminuted fracture of left patella, initial encounter for closed fracture Subjective Interval history since last seen: Coco reports to be doing well. She is able to get up with physical therapy. Her pain is been well controlled. She has tolerated the knee immobilizer well. She denies any nausea or vomiting. No chest pain or shortness of breath. Exam Narrative Exam Narrative: Evaluation the left lower extremity shows dressing which is clean dry and intact. Knee immobilizer in place. Positive ankle dorsiflexion, plantarflexion, EHL, FHL. Sensation intact light touch of the deep and superficial peroneal nerve and tibial nerve. Objective Objective Clinical Data: Vital Signs Temperature 36.0 C L 04/17/19 16:33 Temperature Source Tympanic 04/17/19 16:33 Pulse 67 04/17/19 16:33 Pulse Rhythm Regular 04/17/19 15:22 Respiratory Rate 18 04/17/19 16:33 Respiratory Effort Non-Labored 04/17/19 15:22 Respiratory Depth Normal 04/17/19 15:22 Respiratory Pattern Normal 04/17/19 12:10 Blood Pressure 133/63 04/17/19 16:33 Blood Pressure Position Supine 04/15/19 09:39 Pulse Oximetry 98 04/17/19 16:33 Respiratory End-tidal CO2 28 04/16/19 11:03 Oxygen Delivery Method Room Air 04/17/19 16:33 Oxygen Flow Rate 0 04/17/19 16:33 Pain Level 0 04/17/19 16:33 Comment 04/17/19 00:04 Intake & Output 07/04/17/19 04/17/19 23:59 11:59 23:59 Intake Total 1163.5 / 3121.833 1575.167 / 2055.167 480 / 2055.167 Output Total 3375 / 3875 2200 / 2750 550 / 2750 Balance -2211.5 / -753.167 -624.833 / -694.833 -70 / -694.833 Intake: IV 213.5 / 2156.259 3828.167 / 1575.167 Oral 950 / 1270 480 / 480 Output: Urine 3375 / 3825 2200 / 2750 550 / 2750 Other: Urine Color Yellow Yellow Yellow Urine Appearance Clear Clear Clear Urine Odor Normal Normal Stool Size Moderate Stool Characteristics Soft Formed Brown Voiding Methods Bedpan Toilet Toilet Laboratory Results WBC 7.74 k/cumm (4.4-10.8) 04/15/19 10:53 RBC 4.89 m/cumm (4.00-5.20) 04/15/19 10:53 Hgb 14.0 g/dL (12.0-15.5) 04/15/19 10:53 Hct 42.6 % (36.0-46.0) 04/15/19 10:53 MCV 87.1 fL (80-95) 04/15/19 10:53 MCH 28.6 pg (27.0-33.0) 04/15/19 10:53 MCHC 32.9 g/dL (32.0-36.0) 04/15/19 10:53 RDW 13.1 % (11.7-14.6) 04/15/19 10:53 Plt Count 261 x1000/uL (130-400) 04/15/19 10:53 MPV 12.5 fL (8.0-11.0) H 04/15/19 10:53 Immature Gran % 0.4 04/15/19 10:53 65.0 04/15/19 10:53 25.3 04/15/19 10:53 7.1 04/15/19 10:53 1.3 04/15/19 10:53 0.9 04/15/19 10:53 Absolute Neutrophils 5.03 k/cumm (1.2-6.7) 04/15/19 10:53 Absolute Lymphocytes 1.96 k/cumm (1.2-3.4) 04/15/19 10:53 Absolute Monocytes 0.55 k/cumm (0.11-0.7) 04/15/19 10:53 Absolute Eosinophils 0.10 k/cumm (0.0-0.7) 04/15/19 10:53 Absolute Basophils 0.07 k/cumm (0.0-0.2) 04/15/19 10:53 Sodium Cancelled 04/16/19 07:30 Potassium Cancelled 04/16/19 07:30 Chloride Cancelled 04/16/19 07:30 Carbon Dioxide Cancelled 04/16/19 07:30 Cancelled 04/16/19 07:30 BUN Cancelled 04/16/19 07:30 Cancelled 04/16/19 07:30 Cancelled 04/16/19 07:30 Glucose Cancelled 04/16/19 07:30 Calcium Cancelled 04/16/19 07:30 0.4 mg/dL (0.2-1.0) 04/16/19 07:12 0.07 mg/dL (0.00-0.20) 04/16/19 07:12 AST 10 U/L (15-37) L 04/16/19 07:12 ALT 36 U/L (12-78) 04/16/19 07:12 74 U/L (46-116) 04/16/19 07:12 6.3 g/dL (6.4-8.2) L 04/16/19 07:12 3.4 g/dL (3.4-5.0) 04/16/19 07:12
[2019-04-18] MEDS: HYDROcodone 5/Acetaminophen 325 TAB PO ×2 (03:22→08:18)
[2019-04-18 03:35] VITALS: BP 152/88; PULSE 90; RESP 18; TEMP 37.5; O2SAT 96
--- NOTE | 2019-04-18 07:00 | DSE_ITS ---
Date of service: 04/18/19 Time of Service: 10:00 DS: Diagnosis Discharge Diagnosis (1) Fracture of left patella: Status: Acute Discharge Plan Disposition Patient Disposition: SNF (LEVEL 1) [facility] Condition: Improving Discharge Details Chief Complaint: Orthopedic Reason For Visit: LEFT PATELLA FRACTURE Admit Date/Time: 04/15/19 13:11 Admit Provider: Ashish Vogel Attending Provider: Ashish Vogel Primary Care Provider: Hilda Dhaliwal ED Provider: Artur Moreno Hospital Course Hospital Course: Coco was admitted from the emergency department for her comminuted and displaced left patella fracture. She went to the operating room on hospital day #2 for open reduction internal fixation. She tolerated procedure well. She is able to mobilize with physical therapy on hospital day #3. She had adequate pain control. She was kept in the immobilizer. She was voiding spontaneously. She was deemed safe for discharge to retirement facility. Home Meds and New Rx's Prescriptions: New polyethylene glycol 3350 17 gram Powder In Packet 17 g PO BID PRN PRN (Reason: Constipation) Qty: 0 RF: 0 hydrocodone-acetaminophen 5-325 mg Tablet 1 tab PO Q4H PRN PRNQty: 8 RF: 0 acetaminophen [Mapap Extra Strength] 500 mg Tablet 500 mg PO TID Qty: 0 RF: 0 docusate sodium [Colace] 100 mg Capsule 100 mg PO BID PRN PRN (Reason: Constipation) Qty: 0 RF: 0 ibuprofen 600 mg tablet 600 mg PO TID PRN (Reason: pain) Qty: 60 RF: 0 Continued simvastatin 10 MG tablet 10 mg PO DAILY Qty: 1 RF: 0 Therems 1 EACH tablet 1 ea PO DAILY Qty: 1 RF: 0 Buspirone HCl 5 MG tablet 5 mg PO BID RF: 0 donepezil 10 MG tablet 10 mg PO DAILY RF: 0 lisinopril 10 MG tablet 20 mg PO DAILY RF: 0 fluoxetine [Prozac] 10 MG capsule 10 mg PO DAILY RF: 0 hydrochlorothiazide 25 MG tablet 12.5 mg PO DAILY RF: 0 acetylcysteine 600 mg Capsule See Rx Instructions .ROUTE .COMPLEX RF: 0 Discontinued ibuprofen 800 MG tablet 800 mg PO TID RF: 0 Discharge Instructions Additional Instructions: Activity: You may bear weight as tolerated on the leg as long as the brace is on and wrapped securely. You should always use the walker for support. You should keep the brace on at all times until your follow-up, removing only for wound check and hygiene. You may start straight-leg raises within the brace. You may move your ankle and toes as needed. Dressing: You should keep the knee dressing in place until your follow-up appointment. If it becomes soiled or it unravels, you should call and notify the office. You may rewrap or overwrap until the follow-up. Medications: - You should take Tylenol and Ibuprofen around the clock for the first days- weeks. This will cover baseline pain control. - You have been prescribed a stronger medication if needed. If this is necessary, and you need a refill, please call the office at [phone]. Referrals: Hilda Dhaliwal PA [Primary Care Provider] - Ashish Vogel MD [ [facility] STAFF PHYSICIAN] - Activity:: WBAT LLE with brace on Equipment/Supplies:: Walker Diet:: As Tolerated DS: Data Vitals/I&O Vitals and I&O: Vital Signs Temperature 37.5 C 04/18/19 03:35 Temperature Source Skin 04/18/19 03:35 Pulse 90 04/18/19 03:35 Pulse Rhythm Regular 04/18/19 00:46 Respiratory Rate 18 04/18/19 03:35 Respiratory Effort Non-Labored 04/18/19 00:46 Respiratory Depth Normal 04/18/19 00:46 Respiratory Pattern Normal 04/17/19 12:10 Blood Pressure 152/88 H 04/18/19 03:35 Blood Pressure Position Supine 04/15/19 09:39 Pulse Oximetry 96 04/18/19 03:35 Respiratory End-tidal CO2 28 04/16/19 11:03 Oxygen Delivery Method Room Air 04/18/19 03:35 Oxygen Flow Rate 0 04/18/19 03:35 Pain Level 5 04/18/19 03:35 Comment 04/18/19 03:35 Intake & Output 04/17/19 04/17/19 04/18/19 11:59 23:59 11:59 Intake Total 1575.167 / 2295.167 720 / 2295.167 200 / 200 Output Total 2200 / 2750 550 / 2750 Balance -624.833 / -454.833 170 / -454.833 200 / 200 Intake: IV 1575.167 / 1575.167 Oral 720 / 720 200 / 200 Output: Urine 2200 / 2750 550 / 2750 Other: Urine Color Yellow Yellow Yellow Urine Appearance Clear Clear Clear Urine Odor Normal Stool Size Moderate Stool Characteristics Soft Formed Brown Voiding Methods Toilet Toilet Toilet Labs on day of discharge: Labs from last 24 hours 04/18/19 05:35 Plt Count Pending REPLACED BY [facility] Medical History Benign hypertension Depression Hyperlipidemia Organic brain syndrome PTSD Symptoms of Dementia Tinnitus Surgical History Colonoscopy - MAC (06/07/17) Total replacement of hip Social History Smoking/Tobacco Use Status: Former Tobacco Use Alcohol Intake: never Drug use: Never Do you feel safe at home: Yes Do you feel safe in your relationship?: Yes
[2019-04-18 07:42] LABS: Platelet Count 223 x1000/uL (130-400)
[2019-04-18 07:45] VITALS: BP 149/85; PULSE 79; RESP 19; TEMP 36.5; O2SAT 97
[2019-04-18] MEDS: busPIRone 5 MG TAB PO (08:10)
[2019-04-18] MEDS: Acetaminophen 500 MG TAB PO ×2 (08:10→13:33)
[2019-04-18] MEDS: hydroCHLOROthiazide 25 MG TAB 12.5 MG PO (08:10)
[2019-04-18] MEDS: FLUoxetine 10 MG TAB PO (08:11)
[2019-04-18] MEDS: Donepezil 5 MG TAB 10 MG PO (08:11)
[2019-04-18] MEDS: Lisinopril 10 MG TAB 20 MG PO (08:11)
[2019-04-18] MEDS: Simvastatin 10 MG TAB PO (08:11)
[2019-04-18] MEDS: Enoxaparin 40 MG/0.4 ML SYR SC (08:12)
--- NOTE | 2019-04-18 08:20 | PT.INTREAT ---
Date of service: 04/18/19 Time of Service: 08:20 PT Notes Inpatient Physical Therapy Treatment Note [facility] Date: 04/18/2019 PRECAUTIONS: Fall, WBAT L SUBJECTIVE: Coco is agreeable to participating in PT. She states that she isn't having much pain this morning. OBJECTIVE: PAIN: Patient complained of left patellar discomfort at rest BED MOBILITY/TRANSFERS Supine-sit: I with HOB at 40 degrees Sit-stand: SBA Stand-sit: SBA GAIT Assistive Device:FWW Weight bearing: WBAT L Assist: SBA Distance: 50' x2 Deviation: Step-through instruct THEREX: Patient completed ankle pumps and glute set exercises, in a seated position, as per flow sheet. Added SLR exercise x10 with knee immobilizer, patient required min assist for completion. ASSESSMENT: Patient tolerated session with minimal c/o left knee discomfort at rest. Patient would benefit from continued gait and transfer training as well as strengthening for improved mobility and improved activity tolerance. PLAN: Continue with PTs POC TREATMENT CODE/TIME: 25 minutes; [id number], [id number]
[2019-04-18 11:11] VITALS: BP 122/63; PULSE 78; RESP 18; TEMP 36.9; O2SAT 95
--- NOTE | 2019-04-18 13:28 | NUR.NOTE ---
called report to [facility] at [facility]. RCT to transport patient at 1400.Nursing Note:
--- NOTE | 2019-04-18 13:59 | W.MEDCONSULT ---
Date of service: 04/18/19 Time of Service: 13:59 Assessment and Plan (1) Fracture of left patella: Current visit: No Status: Acute Status post ORIF 04/16/2019. Follow orthopedic orders, left knee immobilizer x6 weeks, weight-bear as tolerated, physical therapy as ordered. She has some narcotic pain medication (#8) otherwise primarily use ibuprofen for pain control. Qualifiers: Encounter type: initial encounter Fracture type: closed Fracture morphology: comminuted Fracture alignment: displaced Qualified Code(s): S82.042A - Displaced comminuted fracture of left patella, initial encounter for closed fracture (2) Organic brain syndrome: Current visit: No Status: None Baseline dementia is stable. She is cooperative with out evidence of agitation. She is able to understand and follow commands. History of Present Illness Chief Complaint: Right patella fracture Narrative: This is a 63-year-old woman with dementia that lives with a home provider (Swathi Anguiano). On 04/15/2019 she suffered a fall while getting out of bed. She struck her left knee sharply and had immediate pain in her left knee. In the emergency room x-rays confirmed a comminuted fracture of the right patella. Dr. Vogel was consulted from orthopedics. She was admitted to the hospital and underwent ORIF of the left patella fracture on 04/16/2019. Since that time her pain control has been adequate. She has been in a knee immobilizer. She is full weightbearing. She has been working with physical therapy. It is anticipated she will need to be in an immobilizer for 6 weeks and then begin gradual mobility therapy. She is being transferred to [facility] and rehab for continued rehabilitation. Review of Systems Review of Systems Overall review of systems is negative. Constitutional Denies difficulty sleeping, Denies fever(s), Denies lethargy and Denies weakness Eyes Denies change in vision ENT Denies dizziness Cardiovascular Denies chest pain with activity and Denies dyspnea on exertion Respiratory Denies dyspnea on exertion Gastrointestinal Denies change in bowel habits Genitourinary Denies urinary frequency Musculoskeletal Comments: Minimal pain or discomfort in that left knee. She admits to some pain when she tries to move it but for the most part is overall comfortable. She is able to do a straight leg raise with that leg without much discomfort. Integumentary/Breasts Comments: She has 2 areas of bruising. One on her right lower abdomen about 8 cm. Another is in the left upper thigh about 2 x 6 cm. She is unsure how these occurred. Neurologic Denies abnormal speech, Denies behavioral changes, Denies dizziness and Denies weakness Psychiatric Denies behavioral changes Comments: Baseline memory and cognitive dysfunction [facility] Medical History Benign hypertension Depression Hyperlipidemia Organic brain syndrome PTSD Symptoms of Dementia Tinnitus Surgical History Colonoscopy - MAC (06/07/17) Total replacement of hip Social History Smoking/Tobacco Use Status: Former Tobacco Use Alcohol Intake: never Drug use: Never Do you feel safe at home: Yes Do you feel safe in your relationship?: Yes Exam Narrative Exam Narrative: On exam she is quite gregarious and talkative. She moves all extremities. She seems to move freely in the bed without any evidence of underlying discomfort. She was able to help with us in the exam of her left leg including doing a straight leg raise. Const General: cooperative and comfortable Nutritional Appearance: obese Orientation: alert, awake and oriented x3 HENMT Head: normal to inspection Ears: hearing grossly normal bilaterally General nose exam: external nose normal Face and sinus: normal facial exam Mouth: oral mucosae normal Teeth and gingiva: dentition normal Eyes General: appearance normal, both eyes and all related structures Neck Neck: normal visual inspection Chest Chest: normal inspection of the chest Resp Effort & Inspection: normal respiratory effort Auscultation: clear to auscultation bilaterally Cardio Heart Sounds: S1 normal, S2 normal and murmur (3/6 systolic murmur in the left upper sternal border) GI Inspection: normal to inspection Palpation: soft and nontender Skin General skin exam: purpura (Superficial purpura in the right lower abdomen about 8 cm diameter) and other (Bruise left upper thigh 2 x 6 cm) Neuro Other: No focal deficit Extrem Other: Left knee is bandaged and in an immobilizer. Immobilizer taken down. Dressing is intact and dry. There was no erythema proximal or distal. Neurovascularly intact skin warm and dry. Psych Speech and Movement: speech and movement normal Mood: euphoric mood Affect: animated Attitude: cooperative Insight: limited Judgment: fair Results Last Vital Signs Temp 36.9 C 04/18/19 11:11 Pulse 78 04/18/19 11:11 Resp 18 04/18/19 11:11 BP 122/63 04/18/19 11:11 Pulse Ox 95 04/18/19 11:11 Labs : 04/18/19 07:15 04/16/19 07:12 Laboratory Results - last 24 hr 04/18/19 07:15 Plt Count 223
--- NOTE | 2019-04-18 15:57 | PDOC.CMDIS ---
LACE Index Scoring Tool - Questions: Length of Stay (in days): 3 Acuity (Admit via E.D.?): Yes Comorbidities: Dementia E.D. Visits: 1 - Answers: Total Score: 10 Risk of Readmission: High Risk Care Management Discharge Reason for Hospitalization: Left Patella Fracture Discharge Plan: Coco will transition to [facility] when ready per MD for short term SNF placement prior to returning home. Coco has a emergency communications operator home caregiver/provider Stephenie and has been stable in their home for the last four years. CM coordinated transport through [facility]; Coco will transport via private vehicle. Coco's Guardian (Radha Velasquez) was in agreement with this plan. Patient/Family Education Needs: Review of discharge instructions, SNF transfer process. Services Needed at Discharge: [facility] Facility ([facility])
--- NOTE | 2019-04-18 18:00 | PT.INDS ---
Date of service: 04/18/19 PT Notes Inpatient Physical Therapy Discharge Summary Dates: 04/18/2019 Dates of Service: 04/17/2019 through 04/18/2019 This is a clinical summary of care provided on the duration of dates listed above. No charge was made in the completion of this documentation. Referring Doctor: Ashish Vogel MD PT Orders: PT CONSULT: Manage follow per spec for ORIF L patella fx Precautions: WBAT through Left, and standard Patient Profile/Admitting Diagnosis: Orders received for this 63 year old female with a history of cognitive delay. She apparently suffered a fall at home and struck her knee on the left side fracturing her patella. X-ray imaging confirmed the fracture and the need for ORIF was identified after consult with orthopedics. Patient had the surgery two days ago and orders were placed for a full PT evaluation to be completed on post op day 1. PMHX: Medical History Benign hypertension Depression Hyperlipidemia Organic brain syndrome PTSD Symptoms of Dementia Tinnitus Surgical History Colonoscopy - MAC (06/07/17) Total replacement of hip Social History/Home Situation: Patient lives at home in the care of her manager operations and procurement caregiver Equipment Owned/DME: [employer] Subjective: Patient states that she is doing okay for the most part. Objective: NT Mental Status: NT Pain: NT ROM: Right Upper Extremity: WFL Left Upper Extremity: WFL Right Lower Extremity: WFL Left Lower Extremity: hip with adequate rotation and flexion to 90 degrees, knee ROM not assessed per precations, ankle ROM WFL Strength: Right Upper Extremity: globally 5/5 Left Upper Extremity: globally 5/5 Right Lower Extremity: globally 5/5 Left Lower Extremity: Hip and knee musculature not assessed appropriately due to restrictions, ankle strength 5/5 Bed Mobility/Transfers: I for bed mobility including negotiation of Linen Supine-sit: SBA Sit-stand: SBA Stand-sit: SBA Gait: Patient able to ambulate up to 50 feet x 2 WBAT and SBA step through. Minimal cues needed Balance: Static Sitting: Good Dynamic Sitting: Good Static Standing: Fair Dynamic Standing: Fair ASSESSMENT: Patient is a 63-year-old female with hx of good physical health. Admitted with left patellar fx with ORIF. Patient presents with the following impairment level findings: limited ROM through the left, WBAT through Left, limited ambulation distance, and assistance with transfers. Goals: Goals X1 week 1. Supine-Sit Supervision NOT MET 2. Sit-Supine supervision NOT MET 3. Sit-Stand supervision NOT MET 4. Stand-Sit supervision NOT MET 5. Bed-Chair supervision NOT MET 6. Gait with 2WW and supervision up to 100 feet NOT MET TREATMENT CODE/TIME: RUBEN Thank you very much for this referral. Leslye Patrick PT, DPT, CLT [facility]
== END 2019-04-18 14:06 | disposition skilled nursing facility (03) | DRG 516 ==
LOC: ER 14:48 → MS 14:54
PROVIDERS: Admitting Provider Student in an Organized Health Care Education/Training Program; Emergency Provider Emergency Medicine; PCP Physician Assistant Medical; Visit Provider Student in an Organized Health Care Education/Training Program
PROC: 0QSF04Z Reposition Left Patella with Internal Fixation Device, Open Approach (ICD-10-PCS; CPT 27524; principal; 2019-04-16 08:00)
DX: S82.042A Displaced comminuted fracture of left patella, initial encounter for closed fracture (principal); E87.0 Hyperosmolality and hypernatremia; W06.XXXA Fall from bed, initial encounter; Z96.642 Presence of left artificial hip joint; G89.18 Other acute postprocedural pain; F03.90 Unspecified dementia, unspecified severity, without behavioral disturbance, psychotic disturbance, mood disturbance, and anxiety; F09 Unspecified mental disorder due to known physiological condition; I10 Essential (primary) hypertension; F32.9 Major depressive disorder, single episode, unspecified; E78.5 Hyperlipidemia, unspecified
CPT/HCPCS: 27524; 36415; 73562; 76000; 76942; 80048; 80076; 97110; 97530; 99252; 99253; 99285; J1650; NC; 73502; 73560; 73590; 85025; 85049; 99221; J0690; J1100; J1885; J2405

== ENCOUNTER 2019-05-03 10:48 | Outpatient (CLI) | payer MEDICARE, MEDICAID, SELFPAY ==
--- NOTE | 2019-05-03 10:33 | DI.RAD_ITS ---
SYMPTOM/DIAGNOSIS: POST OP LEFT KNEE: Comparison is made with intraoperative images of 04/16/19. Hardware is again noted in the patella which appears unchanged. There is no change in alignment of the patellar fracture.
== END 2019-05-03 11:08 ==
PROVIDERS: PCP Physician Assistant Medical; Visit Provider Student in an Organized Health Care Education/Training Program
DX: S82.042D Displaced comminuted fracture of left patella, subsequent encounter for closed fracture with routine healing (principal)
CPT/HCPCS: 73560

== ENCOUNTER 2019-06-01 11:42 | Outpatient (CLI) | payer MEDICARE, MEDICAID, SELFPAY ==
--- NOTE | 2019-06-01 11:27 | DI.RAD_ITS ---
SYMPTOMS/DIAGNOSIS: F/U LT PATELLA FRACTURE LEFT KNEE: Two views were obtained and show previously described fixation of patellar fracture with no gross interval change in alignment of the fracture fragments in comparison with examination of 05/03.
== END 2019-06-01 12:02 ==
PROVIDERS: PCP Physician Assistant Medical; Visit Provider Physician Assistant
DX: S82.042D Displaced comminuted fracture of left patella, subsequent encounter for closed fracture with routine healing (principal)
CPT/HCPCS: 73560

== ENCOUNTER 2019-06-29 12:31 | Outpatient (CLI) | payer MEDICARE, MEDICAID, SELFPAY ==
--- NOTE | 2019-06-29 12:10 | DI.RAD_ITS ---
EXAM: XR KNEE LT 2V AP,LAT INDICATION: F/U SURGERY. COMPARISON: XR knee LT 2V AP,lat from 06/01/2019 TECHNIQUE: 2D digital imaging was performed. FINDINGS: Two views were obtained and show previous described fracture of patella with fixation screws and wire s in place. Alignment appears unchanged in comparison with the examination of June 01. IMPRESSION:
== END 2019-06-29 12:51 ==
PROVIDERS: PCP Physician Assistant Medical; Visit Provider Student in an Organized Health Care Education/Training Program
DX: S82.042D Displaced comminuted fracture of left patella, subsequent encounter for closed fracture with routine healing (principal)
CPT/HCPCS: 73560

== ENCOUNTER 2019-07-13 21:52 | Outpatient (REF) | payer MEDICARE, MEDICAID, SELFPAY ==
[2019-07-13 22:06] LABS: Anion Gap 11.5 mmol/L (3-11); BUN 13 mg/dL (7-18); CO2 26.5 mmol/L (21.0-32.0); CREATININE 0.62 mg/dL (0.55-1.02); Calcium 8.9 mg/dL (8.5-10.1); Chloride 107 mmol/L (98-107); Glucose 75 mg/dL (70-100); Potassium 3.5 mmol/L (3.5-5.1); Sodium 145 mmol/L (136-145)
== END 2019-07-13 22:12 ==
LOC: NCHCN 21:52
PROVIDERS: PCP Physician Assistant Medical; Visit Provider Nurse Practitioner Family
DX: I10 Essential (primary) hypertension (principal)
CPT/HCPCS: 80048

== ENCOUNTER 2019-07-17 01:12 | Outpatient (CLI) | payer MEDICARE, MEDICAID, SELFPAY ==
--- NOTE | 2019-07-17 16:34 | DI.DEXA_ITS ---
EXAM: XR DEXA BONE DENSITY W/WO DEBBIE INDICATION: SCREENING OSTEOPOROSIS Z13.820. COMPARISON: No exams were available for comparison TECHNIQUE: The exam was performed according to the usual protocol. FINDINGS: The DEBBIE image shows no evidence of compression fractures. The bone mineral density measurements of the lumbar spine correspond to a total T-score of -1.7, in the osteopenic range. The bone mineral de nsity measurements of the right hip correspond to a total T-score of 1-.3 and femoral neck T-score of -0.8, in the osteopenic range. The bone mineral density measurements of the left forearm correspond to a total T-score of -1.6 and a T-score of the distal 3rd of forearm -3.0, consistent with osteopor osis. IMPRESSION: Osteoporosis of the left forearm. Osteopenia of the lumbar spine and right hip.
== END 2019-07-17 01:32 ==
PROVIDERS: PCP Physician Assistant Medical; Visit Provider Nurse Practitioner Family
DX: M81.0 Age-related osteoporosis without current pathological fracture (principal); M85.88 Other specified disorders of bone density and structure, other site
CPT/HCPCS: 77080

== ENCOUNTER → 2019-08-10 11:12 | Outpatient (BNVA) | payer MEDICARE, MEDICAID, SELFPAY | PROVIDERS: PCP Physician Assistant Medical; Referring Provider Physician Assistant Medical; Visit Provider Student in an Organized Health Care Education/Training Program | DX: S82.042D Displaced comminuted fracture of left patella, subsequent encounter for closed fracture with routine healing; X58.XXXD Exposure to other specified factors, subsequent encounter | CPT/HCPCS: 99212; 99213 ==

== ENCOUNTER 2019-11-02 10:30 | Outpatient (REF) | payer MEDICARE, MEDICAID, SELFPAY ==
[2019-11-02 21:39] LABS: Anion Gap 7.6 mmol/L (3-11); BUN 17 mg/dL (7-18); CO2 31.4 mmol/L (21.0-32.0); CREATININE 0.68 mg/dL (0.55-1.02); Calcium 9.3 mg/dL (8.5-10.1); Chloride 107 mmol/L (98-107); Glucose 93 mg/dL (74-106); Potassium 4.5 mmol/L (3.5-5.1); Sodium 146 mmol/L (136-145)
== END 2019-11-02 10:50 ==
LOC: NCHCN 10:30
PROVIDERS: PCP Physician Assistant Medical; Visit Provider Specialist/Technologist Athletic Trainer
DX: I10 Essential (primary) hypertension (principal)
CPT/HCPCS: 80048

== ENCOUNTER 2019-11-27 11:58 | Outpatient (REF) | payer MEDICARE, MEDICAID, SELFPAY ==
[2019-11-27 20:42] LABS: Calculated LDL 108 mg/dL (<100); Cholesterol 210 mg/dL (<200); HDL Cholesterol 74 mg/dL (40-60); Triglyceride 140 mg/dL (<150)
[2019-11-27 20:55] LABS: Vitamin D 25 Total 29.3 ng/ml (30-100)
[2019-11-28 14:17] LABS: Glucose 87 mg/dL (74-106)
== END 2019-11-27 12:18 ==
LOC: NCHCN 11:58
PROVIDERS: PCP Physician Assistant Medical; Visit Provider Nurse Practitioner Family
DX: E78.5 Hyperlipidemia, unspecified (principal); M81.0 Age-related osteoporosis without current pathological fracture; R73.01 Impaired fasting glucose
CPT/HCPCS: 80061; 82306; 82947

== ENCOUNTER 2021-01-02 12:47 | Outpatient (REF) | payer MEDICARE, MEDICAID, SELFPAY ==
[2021-01-02 15:49] LABS: ALT 41 U/L (14-59); AST 21 U/L (15-37); Anion Gap 9.8 mmol/L (3-11); BUN 14 mg/dL (7-18); CO2 29.2 mmol/L (21.0-32.0); CREATININE 0.7 mg/dL (0.55-1.02); Calcium 9.3 mg/dL (8.5-10.1); Calculated LDL 116 mg/dL (<100); Chloride 106 mmol/L (98-107); Cholesterol 218 mg/dL (<200); Glucose 91 mg/dL (74-106); HDL Cholesterol 79 mg/dL (40-60); Potassium 4.4 mmol/L (3.5-5.1); Sodium 145 mmol/L (136-145); TSH (W/Ref FT4) 1.28 uIU/mL (0.36-3.74); Triglyceride 118 mg/dL (<150)
[2021-01-02 16:15] LABS: Creatine Kinase 93 U/L (26-192)
[2021-01-02 16:21] LABS: Hemoglobin A1C 5.7 % (<5.7)
== END 2021-01-02 12:48 | disposition home or self-care (01) ==
LOC: NCHCN 12:47
PROVIDERS: PCP Nurse Practitioner Family; Visit Provider Nurse Practitioner Family
DX: I10 Essential (primary) hypertension (principal); E78.5 Hyperlipidemia, unspecified; R73.03 Prediabetes
CPT/HCPCS: 80048; 80061; 82550; 83036; 84443; 84450; 84460

== ENCOUNTER 2021-01-08 02:24 | Outpatient (CLI) | payer MEDICARE, MEDICAID, SELFPAY ==
--- NOTE | 2021-01-08 12:00 | DI.MAMMO_ITS ---
EXAM: MAMMO SCREENING CLINICAL HISTORY: SCREENING, Z12.39. TECHNIQUE: Bilateral full field digital CC and MLO mammographic images were obtained with 3D tomosyn thesis and utilizing computer aided detection (CAD). COMPARISON: Prior mammograms dating back to 2010, the most recent being September 2017. FINDINGS: Fibroglandular tissue is again noted be moderately dense, this decreasing the sensitivity of the mamm ogram for finding hidden underlying lesions. Asymmetric tissue medially in the right breast is unchanged from prior studies. There are no new significant masses. Benign-appearing microcalcifications are again noted in both br easts. There are no new malignant-appearing microcalcification groups in either breast. There is no significant architectural distortion nor skin thickening-retraction. IMPRESSION: Stable benign findings. No radiographic evidence of malignancy BI-RADS Category 2 - Benign Findings Breast Density - Category C - Heterogeneously dense Breast density Category C or D implies that the patient has dense breast tissue. Dense breast tissue can make it harder to find cancer on a mammogram. Dense breast tissue is also associated with an incr eased risk of breast cancer. This information about the result of the mammogram report was provided to the patient to raise their awareness. Use this report when you speak with the patient about their risks for breast cancer, which includes their family history. At that time, you may recommend additional screening tests (Ultrasoun d or MRI) as these tests may add significant information. A negative radiographic report should not delay biopsy if a dominant or clinically suspicious mass is present. Up to ten percent of cancers are not identified on mammography. A negative report may reinforce clinical impression. Adenosis and dense breasts may obscure an underlying neoplasm. False positive reports average 6 to 10%. Patient will receive a letter notifying them of these results.
== END 2021-01-08 02:44 ==
PROVIDERS: PCP Nurse Practitioner Family; Visit Provider Nurse Practitioner Family
DX: Z12.31 Encounter for screening mammogram for malignant neoplasm of breast (principal)
CPT/HCPCS: 77063; 77067

== ENCOUNTER 2022-01-15 12:30 | Outpatient (REF) | payer MEDICARE, MEDICAID, SELFPAY ==
[2022-01-15 13:33] LABS: ALT 28 U/L (14-59); AST 15 U/L (15-37); Albumin 4.1 g/dL (3.4-5.0); Alkaline Phosphatase 79 U/L (46-116); Anion Gap 5.5 mmol/L (3-11); BUN 15 mg/dL (7-18); Bilirubin, Total 0.4 mg/dL (0.2-1.0); CO2 29.5 mmol/L (21.0-32.0); CREATININE 0.6 mg/dL (0.55-1.02); Calcium 8.9 mg/dL (8.5-10.1); Chloride 108 mmol/L (98-107); Glucose 86 mg/dL (74-106); HDL Cholesterol 81 mg/dL (40-60); LDL CHOLESTEROL 97 mg/dL (<100); Potassium 3.6 mmol/L (3.5-5.1); Sodium 143 mmol/L (136-145); Total Protein 7.1 g/dL (6.4-8.2)
[2022-01-15 13:40] LABS: Hemoglobin A1C 5.6 % (<5.7)
[2022-01-15 14:10] LABS: Vitamin D 25 Total 47.9 ng/mL (30-100)
[2022-01-15 20:01] LABS: Creatine Kinase 87 U/L (26-192)
== END 2022-01-15 12:31 | disposition home or self-care (01) ==
LOC: NCHCN 12:30
PROVIDERS: PCP Nurse Practitioner Family; Visit Provider Nurse Practitioner Family
DX: E78.5 Hyperlipidemia, unspecified (principal); R73.03 Prediabetes; I10 Essential (primary) hypertension; M85.80 Other specified disorders of bone density and structure, unspecified site
CPT/HCPCS: 80053; 82306; 82550; 83721; 83036; 83718

== ENCOUNTER 2023-01-26 10:11 | Outpatient (REF) | payer MEDICARE, MEDICAID, SELFPAY ==
[2023-01-26 16:01] LABS: ALT 35 U/L (14-59); AST 20 U/L (15-37); Albumin 4.1 g/dL (3.4-5.0); Alkaline Phosphatase 76 U/L (46-116); Anion Gap 4.1 mmol/L (3-11); BUN 16 mg/dL (7-18); Bilirubin, Total 0.4 mg/dL (0.2-1.0); CO2 31.9 mmol/L (21.0-32.0); CREATININE 0.8 mg/dL (0.55-1.02); Calcium 9.7 mg/dL (8.5-10.1); Chloride 109 mmol/L (98-107); Creatine Kinase 82 U/L (26-192); Estimated GFR 80.21 (mL/min/1.73m2); Glucose 95 mg/dL (74-106); Potassium 5.4 mmol/L (3.5-5.1); Sodium 145 mmol/L (136-145); Total Protein 7.6 g/dL (6.4-8.2)
[2023-01-26 16:10] LABS: Hemoglobin A1C 5.5 % (<5.7)
[2023-01-26 16:36] LABS: HDL Cholesterol 79 mg/dL (40-60); LDL CHOLESTEROL 97 mg/dL (<100)
== END 2023-01-26 10:12 | disposition home or self-care (01) ==
LOC: NCHCN 10:11
PROVIDERS: PCP Nurse Practitioner Family; Visit Provider Nurse Practitioner Family
DX: E78.5 Hyperlipidemia, unspecified (principal); I10 Essential (primary) hypertension; R73.03 Prediabetes
CPT/HCPCS: 80053; 82550; 83721; 83036; 83718

== ENCOUNTER 2023-02-10 16:39 | Outpatient (REF) | payer MEDICARE, MEDICAID, SELFPAY ==
[2023-02-10 19:44] LABS: Potassium 3.6 mmol/L (3.5-5.1)
== END 2023-02-10 16:40 | disposition home or self-care (01) ==
LOC: NCHCN 16:39
PROVIDERS: PCP Nurse Practitioner Family; Visit Provider Nurse Practitioner Family
DX: R79.89 Other specified abnormal findings of blood chemistry (principal); I10 Essential (primary) hypertension
CPT/HCPCS: 84132

== ENCOUNTER 2023-02-12 01:25 | Outpatient (CLI) | payer MEDICARE, MEDICAID, SELFPAY ==
--- NOTE | 2023-02-12 14:30 | DI.MAMMO_ITS ---
Exam(s) MAMMO SCREENING EXAM: MAMMO SCREENING CLINICAL HISTORY: SCREENING, Z12.39 TECHNIQUE: Bilateral full field digital CC and MLO mammographic images were obtained with 3D tomosyn thesis and utilizing computer aided detection (CAD). COMPARISON: Available for comparison. FINDINGS: Masses/Architectural Distortion: None seen. Microcalcifications: No suspicious pleomorphic-type are seen. Skin Thickening/Nipple Retraction: None. IMPRESSION: 1. No significant interval change with no specific features of malignancy noted. 2. Unless there is more urgent need, screening mammography is recommended, as per [employer] guidelines. BI-RADS Category 1 - Negative Breast Density - Category C - Heterogeneously dense Breast density category C or D implies that the patient has dense breast tissue. Dense breast tissue is very common and is not abnormal but dense breast tissue can make it harder to find cancer on a ma mmogram. Also, dense breast tissue may increase their breast cancer risk. This information about the result of the mammogram report was provided to the patient to raise their awareness. Use this report when you speak with the patient about their risks for breast cancer, which includes their family hist ory. At that time, you may recommend for more screening tests (Ultrasound or MRI) as they might be us eful based on their risk. A negative radiographic report should not delay biopsy if a dominant or clinically suspicious mass is present. Up to ten percent of cancers are not identified on mammography. A negative report may reinforce clinical impression. Adenosis and dense breasts may obscure an underlying neoplasm. False positive reports average 6 to 10%. Patient will receive a letter notifying them of these results.
== END 2023-02-12 01:45 ==
LOC: DI 01:25
PROVIDERS: PCP Nurse Practitioner Family; Visit Provider Nurse Practitioner Family
DX: Z12.31 Encounter for screening mammogram for malignant neoplasm of breast (principal)
CPT/HCPCS: 77063; 77067

== ENCOUNTER → 2024-01-27 04:27 | Outpatient (CLI) | payer MEDICARE, MEDICAID, SELFPAY ==
--- NOTE | 2024-01-27 08:30 | DI.US_ITS ---
APPROVED REPORT EXAM: Comprehensive 2D, Doppler, and color-flow Echocardiogram Patient Location: Out-Patient Design Printing Machine Setter: Pablo Russell RDCS (AE) Indications: Systolic heart murmur, mitral insufficiency Conclusion Normal left ventricular wall thickness and chamber size. Ejection fraction is 60%. Wall motion is n ormal Normal right ventricular size and function Both atria are normal in size The aortic valve is trileaflet and mildly sclerotic with trivial regurgitation Mildly thickened mitral leaflets. Mild mitral regurgitation Mild tricuspid regurgitation. Estimated right ventricular systolic pressure is 28 mmHg Mildly dilated ascending aorta 3.41 cm Wall motion Left Ventricle The left ventricle is normal size. The left ventricular systolic function is normal. The left ventric ular ejection fraction is within the normal range. There is normal left ventricular wall thickness. T here is normal LV segmental wall motion. There is no ventricular septal defect visualized. LVEF is 60 %. Right Ventricle The right ventricle is normal size. The right ventricular systolic function is normal. Atria The left atrium size is normal. The right atrium size is normal. The interatrial septum is intact wit h no evidence for an atrial septal defect. Aortic Valve The Aortic valve is mildly Aortic valve is trileaflet. sclerotic. There is no aortic valvular stenosi s. Trivial aortic regurgitation. Mitral Valve Mitral valve leaflets are mildly thickened. No evidence of mitral valve stenosis. Mild mitral regurgi tation. Tricuspid Valve The tricuspid valve is normal in structure. There is no tricuspid valve stenosis. Mild tricuspid regu rgitation. The RVSP is 28.0 mmHg. Pulmonic Valve The pulmonary valve is normal in structure. There is no pulmonic valvular stenosis. There is no pulmo zahra valvular regurgitation. Great Vessels The aortic root is normal in size. The ascending aorta is mildly dilated. Aortic arch is normal in ca liber. IVC is normal in size and collapses >50% with inspiration. Pericardium There is no pericardial effusion. 2D Dimensions IVSD d PLAX 0.94 cm F: 0.6-1.0 Ao Root d 2.84 cm F: 2.7 - 3.3 LVPW d PLAX 0.89 cm F: 0.6 - 1.0 Ao Asc Diam d 3.41 cm F: 2.3 - 3.1 LVID d PLAX 4.03 cm F: 3.8 - 5.2 LVDs 2.77 cm F: 2.2 - 3.5 LV EF Teichholz 59.6 % FS 31.27 % LV EDV (Teich) 71.1 mL LV ESV (Teich) 28.7 mL Stroke Vol Index (Teich) 33.91 M-Mode TAPSE 2.67 cm (M/F) >1.7 Auto EF LV EDV A4C 124.4 mL LV EDV A2C 130.5 mL LV EDV BP 127.4 mL LV ESV A4C 49.1 mL LV ESV A2C 51.4 mL LV ESV BP 51.2 mL LVEF(%) A4C 60.6 % LVEF(%) A2C 60.6 % LVEF(%) BP 59.8 % LV SV A4C 75.4 ml LV SV A2C 79.1 ml LV SV BP 76.1 ml LV CO A4C 4.7 L/min LV CO A2C 4.8 L/min LV CO BP 4.7 L/min HR A4C 62.61 BPM HR A2C 60.40 BPM LV EDV Index (BP) LA Volume LA Length A4C 3.8 cm LA Length A2C 4.1 cm LA Area A4C s 6.83 cm2 LA Area A2C s 6.68 cm2 LA Vol A4C A-L 10.45 mL LA Vol A2C A-L 9.32 mL LA Vol Biplane A-L 10.2 mL LA Vol/BSA A4C A-L LA Vol/BSA A2C A-L LA Vol/BSA BP A-L 8.2 mL/m2 LA Vol A4C MOD 10.0 mL LA Vol A2C MOD 8.6 mL LA Vol BP MOD 9.3 mL RA Volume RA Area A4C 7.5 cm2 RA ESV A4C (A-L) 14.4mL RA Vol/BSA A4C A-L RA Length A4C 3.3 cm RA ESV A4C (MOD) 13.0mL LV Diastology MV E' medial 0.069 (>0.07 m/s) MV E Vmax 0.84 (0.4-1.3 m/s) MV E/E' MED 12.16 (<14) MV A Vmax 1.10 (0.4-1.3 m/s) MV E' lateral 0.064 (>0.1 m/s) E/A Ratio 0.8 MV E/E' LAT 13.09 (<14) MV E' Average 0.067 m/s MV E/E'(average) 12.61 Aortic Valve AoV Vmax 1.68 m/s LVOT Vmax 1.36 m/s AoV Peak Grad 11.3 mmHg LVOT Peak Grad 7.5 mmHg AoV Area (Vmax) 2.01 cm2 LVOT VTI 0.373 m AoV VTI 0.385 m LVOT Mean Grad 4.8 mmHg AoV Mean Roberth. 1.20 m/s LVOT SV 92.49 mL AoV Mean Grad 6.5 mmHg LVOT Diam s 1.75 cm AoV Area (VTI) 2.40 cm2 Velocity Ratio 0.81 Mitral Valve MV DT 287 (160-240 msec) Pulmonary Valve PV Vmax 1.12 (0.5-1.5 m/s) RVOT Vmax 0.87 m/s PV Peak Grad 5.0 mmHg RVOT Peak Gr. 3.0 mmHg PV Mean Roberth 0.75 m/s RVOT VTI 0.203 m PV Mean Grad 2.6 mmHg RVOT Mean Gr. 1.8 mmHg Tricuspid Valve RA Pressure 3.00 mmHg TR Vmax 2.50 m/s TR Peak Grad 24.9 mmHg RVSP (TR) 28.0 mmHg
== END ==
PROVIDERS: PCP Nurse Practitioner Family; Visit Provider Nurse Practitioner Family
DX: R01.1 Cardiac murmur, unspecified (principal); I34.0 Nonrheumatic mitral (valve) insufficiency
CPT/HCPCS: 93306

== ENCOUNTER 2024-02-03 13:10 | Outpatient (REF) | payer MEDICARE, MEDICAID, SELFPAY ==
[2024-02-03 15:13] LABS: Hemoglobin A1C 5.7 % (<5.7)
[2024-02-03 15:22] LABS: ALT 29 U/L (14-59); AST 19 U/L (15-37); Albumin 3.8 g/dL (3.4-5.0); Alkaline Phosphatase 68 U/L (46-116); BUN 19 mg/dL (7-18); Bilirubin, Total 0.5 mg/dL (0.2-1.0); CREATININE 0.8 mg/dL (0.55-1.02); Calcium 8.9 mg/dL (8.5-10.1); Chloride 109 mmol/L (98-107); Creatine Kinase 88 U/L (26-192); Estimated GFR 79.71 (mL/min/1.73m2); Glucose 91 mg/dL (74-106); Potassium 4.4 mmol/L (3.5-5.1); Sodium 148 mmol/L (136-145)
[2024-02-03 15:46] LABS: HDL Cholesterol 79 mg/dL (40-60); LDL CHOLESTEROL 97 mg/dL (<100)
== END 2024-02-03 13:11 | disposition home or self-care (01) ==
LOC: NCHCN 13:10
PROVIDERS: PCP Nurse Practitioner Family; Visit Provider Nurse Practitioner Family
DX: I10 Essential (primary) hypertension (principal); R73.03 Prediabetes
CPT/HCPCS: 80053; 82550; 83721; 83036; 83718

== ENCOUNTER → 2024-04-18 00:46 | Outpatient (CLI) | payer MEDICARE, MEDICAID, SELFPAY ==
--- NOTE | 2024-04-18 07:11 | DI.NM_ITS ---
Exam(s) NM BONE SCAN 3 PHASE EXAM: NM BONE SCAN 3 PHASE CLINICAL HISTORY: abn spine ct scan at [facility] [place],T 12 COMP FX,s22.080A. TECHNIQUE: Injected Dose: 25 mCi Tc-99m MDP COMPARISON: CR XR hip LT complete AP pelvis from 04/15/[address] HEAD WO CONTRAST from 04/04/[address] SPINE CERVICAL WO CONTRAST from 04/04/[address] SPINE THORACIC WO CONTRAST from 04/04/[address] CHEST WO CONTRAST from 04/04/2024 FINDINGS: Perfusion: Symmetric. Blood Pool: Symmetric. Delayed: Areas of increased radiotracer uptake include the midsternum, the T12 vertebral body and the lateral aspects of the left 9th and 10th ribs. Given the findings on the examination from the CT sc an dated 04/04/2024, these are likely represent traumatic related fractures. There is a right convex l umbar scoliosis. There is a focus of increased radiotracer uptake on the right in the mid cervical s pine which may be facet arthrosis. This would correspond to the right facet arthrosis at C3-C4. The re is a focus of increased radiotracer uptake in the diaphysis of the left femur. This appears to be located at the distal aspect of the component of the left hip prosthesis. IMPRESSION: 1. Increased radiotracer uptake seen in the sternum continuously left lower ribs in the T12 vertebral body consistent with the patient's known fractures. 2. There is no other suspicious increased radiotracer uptake identified. 3. The patient has a left total hip prosthesis with a focus of increased radiotracer uptake adjacent to the tip of the femoral stem. Plain film correlation is recommended. 4. Increased radiotracer uptake on the right in the mid cervical spine which appears to correlate wit h the marked right C3-4 facet arthrosis. DATA REPOSITORY:
== END ==
PROVIDERS: PCP Nurse Practitioner Family; Visit Provider Nurse Practitioner Family
DX: S22.080A Wedge compression fracture of T11-T12 vertebra, initial encounter for closed fracture (principal)
CPT/HCPCS: 78315

== ENCOUNTER → 2024-04-26 01:14 | Outpatient (CLI) | payer MEDICARE, MEDICAID, SELFPAY ==
--- NOTE | 2024-04-26 10:11 | DI.RAD_ITS ---
Exam(s) XR HIP LT COMPLETE AP PELVIS EXAM: XR HIP LT COMPLETE AP PELVIS INDICATION: abn finding on recent bone scan- check prosthesis, R93.89. COMPARISON: CR XR hip LT complete AP pelvis from 04/15/2019 NM NM BONE SCAN 3 PHASE from 04/18/2024 TECHNIQUE: 2D digital imaging was performed. Three views. FINDINGS: Two screws are noted in the left ilium. There is a left total hip prosthesis. There is no visible l ucency at the tip of the stem of the femoral component. Appearance is unchanged from prior. Right h ip joint space is maintained. Severe degenerative changes noted in the lower lumbar spine. Degenera tive changes also present in the SI joints. IMPRESSION: Stable appearance of left hip prosthesis. No findings to suggest loosening at the femoral component . DATA REPOSITORY: RADIATION DOSE DELIVERED:
== END ==
PROVIDERS: PCP Nurse Practitioner Family; Visit Provider Nurse Practitioner Family
DX: R93.89 Abnormal findings on diagnostic imaging of other specified body structures (principal); Z96.642 Presence of left artificial hip joint
CPT/HCPCS: 73502

== ENCOUNTER 2024-05-05 01:19 | Outpatient (CLI) | payer MEDICARE, MEDICAID, SELFPAY ==
[2024-05-05 14:22] LABS: Abs Immature Grans 0.03 10^3/uL (0.0-0.06); Absolute Eosinophil Count 0.25 10^3/uL (0.0-0.7); Absolute Lymphocyte Count 3.93 10^3/uL (1.2-3.4); Absolute Monocyte Count 0.72 10^3/uL (0.1-0.8); Absolute Neutrophil Count 4.47 10^3/uL (1.2-6.7); Basophils % 1.1 %; ESR 7 mm/hr (0-30); Eosinophils % 2.6 %; HGB 13.7 g/dL (11.2-15.7); Immature Grans % 0.3 %; Lymphocytes % 41.4 %; MCH 28.5 pg (27.0-33.0); MCHC 31.9 % (32.0-36.0); MCV 89 fL (80-95); MPV 11.6 fL (8.0-11.0); Monocytes % 7.6 %; Platelet Count 277 10^3/uL (130-400); RBC 4.81 10^6/uL (3.93-5.22); RDW 12.2 % (11.7-14.6); RDW-SD 40.1 fL
[2024-05-05 14:29] LABS: Hemoglobin A1C 5.6 % (<5.7)
[2024-05-05 15:14] LABS: Anion Gap 8.8 mmol/L (3-11); BUN 17 mg/dL (7-18); CO2 29.2 mmol/L (21.0-32.0); CREATININE 0.7 mg/dL (0.55-1.02); Calcium 9.3 mg/dL (8.5-10.1); Calculated LDL 116 mg/dL (<100); Chloride 107 mmol/L (98-107); Cholesterol 227 mg/dL (<200); Estimated GFR 93.56 (mL/min/1.73m2); Glucose 77 mg/dL (74-106); HDL Cholesterol 73 mg/dL (40-60); Potassium 3.4 mmol/L (3.5-5.1); Sodium 145 mmol/L (136-145); TSH (W/Ref FT4) 1.51 uIU/mL (0.36-3.74); Triglyceride 190 mg/dL (<150)
[2024-05-06 10:50] LABS: HIV-1/2 Ag & Ab Screen Negative (Negative)
[2024-05-08 10:16] LABS: Hepatitis C Ab w Rflx HCV PCR Negative (Negative)
[2024-05-08 12:51] LABS: IgA 102 mg/dL (85-499); Interpretation (See Note); Tissue Transglutaminase IgA <4.0 CU (<20.0)
== END 2024-05-05 01:20 | disposition home or self-care (01) ==
LOC: LBO 01:19
PROVIDERS: PCP Nurse Practitioner Family; Referring Provider Nurse Practitioner Family; Visit Provider Nurse Practitioner Family
DX: R63.4 Abnormal weight loss (principal); E78.5 Hyperlipidemia, unspecified; E87.0 Hyperosmolality and hypernatremia; R73.03 Prediabetes
CPT/HCPCS: 80048; 80061; 82784; 83516; 85652; 86803; 87389; 83036; 84443; 85025

== ENCOUNTER 2024-05-16 01:35 | Outpatient (CLI) | payer MEDICARE, MEDICAID, SELFPAY ==
--- NOTE | 2024-05-16 07:45 | DI.MAMMO_ITS ---
Exam(s) MAMMO SCREENING EXAM: MAMMO SCREENING CLINICAL HISTORY: screening,z00.00,preventative health care TECHNIQUE: Mammograms were interpreted according to the usual protocol including computer analysis w [employer] CAD system, tomosynthesis and C-view imaging. COMPARISON: 2015 through 2022 FINDINGS: The breasts are composed of heterogeneously dense fibroglandular densities, Breast Density category C . No suspicious masses or suspicious microcalcifications are seen. No skin thickening or abnormal axillary lymph nodes are seen. There has been no significant change from prior exams. IMPRESSION: BI-RADS Category 1, Negative mammogram. Yearly screening mammography is recommended. Breast Density Category C, heterogeneously Dense. The mammogram demonstrates the patient's breast tissue is dense. Dense breast tissue is very common a nd is not abnormal but dense breast tissue can make it harder to find cancer on a mammogram. Also, de nse breast tissue may increase breast cancer risk. This information about the result of the mammogram report was provided to the patient to raise their awareness. Use this report when you speak with the patient about their risks for breast cancer, which includes their family history. At that time, you may recommend additional screening tests (Ultrasound or MRI) as they might be useful based on their r isk. A negative radiographic report should not delay biopsy if a dominant or clinically suspicious mass is present. Up to ten percent of cancers are not identified on mammography. A negative report may reinforce clinical impression. Adenosis and dense breasts may obscure an underlying neoplasm. False positive reports average 6 to 10%.
== END 2024-05-16 01:55 ==
LOC: DI 01:35
PROVIDERS: PCP Nurse Practitioner Family; Visit Provider Nurse Practitioner Family
DX: Z12.31 Encounter for screening mammogram for malignant neoplasm of breast (principal)
CPT/HCPCS: 77063; 77067

== ENCOUNTER 2025-05-09 03:47 | Outpatient (CLI) | payer MEDICARE, MEDICAID, SELFPAY ==
[2025-05-09 08:43] LABS: Hemoglobin A1C 5.3 % (<5.7)
[2025-05-09 11:18] LABS: ALT 34 U/L (14-59); AST 24 U/L (15-37); Albumin 4.2 g/dL (3.4-5.0); Alkaline Phosphatase 59 U/L (46-116); Anion Gap 7.7 mmol/L (3-11); BUN 14 mg/dL (7-18); Bilirubin, Total 0.8 mg/dL (0.2-1.0); CO2 28.3 mmol/L (21.0-32.0); Calcium 8.8 mg/dL (8.5-10.1); Calculated LDL 103 mg/dL (<100); Chloride 105 mmol/L (98-107); Cholesterol 209 mg/dL (<200); Estimated GFR 92.98 (mL/min/1.73m2); Glucose 89 mg/dL (74-106); HDL Cholesterol 80 mg/dL (>or=50); Potassium 3.7 mmol/L (3.5-5.1); Sodium 141 mmol/L (136-145); Total Protein 7.5 g/dL (6.4-8.2); Triglyceride 133 mg/dL (<150)
== END 2025-05-09 03:48 | disposition home or self-care (01) ==
PROVIDERS: PCP Nurse Practitioner Family; Referring Provider Nurse Practitioner Family; Visit Provider Nurse Practitioner Family
DX: E78.5 Hyperlipidemia, unspecified (principal); R73.03 Prediabetes
CPT/HCPCS: 36415; 80053; 80061; 83036